=== PATIENT | female | born 1940 | race Caucasian/White ===

== ENCOUNTER → 2020-03-08 08:32 | Outpatient (BNVA) | payer MEDICARE, BC, SELFPAY | PROVIDERS: PCP Internal Medicine; Referring Provider Internal Medicine; Visit Provider Hospitalist | DX: J44.9 Chronic obstructive pulmonary disease, unspecified (principal); J98.4 Other disorders of lung; G47.33 Obstructive sleep apnea (adult) (pediatric); I35.0 Nonrheumatic aortic (valve) stenosis | CPT/HCPCS: 99212 ==

== ENCOUNTER 2020-09-06 07:59 | Outpatient (REF) | payer MEDICARE, BC, SELFPAY ==
[2020-09-06 10:28] LABS: Basophils Percent Auto 0.2 % (0-2); Eosinophils Absolute Auto 0.2 X10*3/uL (0.0-0.4); Eosinophils Percent Auto 1.4 % (0-4); Hemoglobin 12.8 g/dl (12.0-16.0); Imm Gran Pct Auto 0.6 % (0.0-0.4); Lymphocytes Absolute Auto 4.6 X10*3/uL (1.2-4.9); Lymphocytes Percent Auto 27.8 % (20-40); MANUAL DIFF FLAG SCAN; Mean Platelet Volume 11.2 fL (9.4-12.3); Monocytes Absolute Auto 1.3 X10*3/uL (0.1-1.2); Neutrophils Absolute Auto 10.2 X10*3/uL (2.0-8.3); Platelet Count 229 X10*3/uL (160-400); Red Cell Distribution Width 13.2 % (11.0-16.0); SCAN SMEAR FLAG 1; White Blood Count 16.4 X10*3/uL (4.8-10.8)
[2020-09-06 11:04] LABS: Alanine Aminotransferase 55 U/L (0-31); Albumin Level 4.2 g/dL (3.5-5.0); Alkaline Phosphatase 66 U/L (39-117); Anion Gap 13 (12-20); Aspartate Amino Transferase 31 U/L (5-31); Bilirubin Direct 0.3 mg/dL (0.0-0.5); Bilirubin Total 0.8 mg/dL (0.0-1.0); Blood Urea Nitrogen 24 mg/dL (9-16); Calcium 10.7 mg/dL (8.4-10.2); Carbon Dioxide 34 mmol/L (22-29); Chloride 96 mmol/L (96-108); Estimated Glomerular Filt Rate > 60; Glucose Random 113 mg/dL (60-115); Sodium 139 mmol/L (135-145); Total Protein 6.7 g/dL (6.5-8.0)
[2020-09-06 11:18] LABS: B Type Natriuretic Peptide 28 pg/mL (<100); Troponin-I High Sensitivity 96.6 ng/L (<3.5-17.0)
[2020-09-06 11:34] LABS: SLIDE REVIEW VERIFIED
[2020-09-06 11:41] LABS: Erythrocyte Sedimentation Rate 39 MM/HR (0-20)
[2020-09-07 08:23] LABS: SARS COV2 IgG Negative (Negative)
== END 2020-09-06 08:00 | disposition home or self-care (01) ==
LOC: HO.LAB 07:59
PROVIDERS: PCP Internal Medicine; Visit Provider Hospitalist
DX: Z20.822 Contact with and (suspected) exposure to COVID-19 (principal); J44.9 Chronic obstructive pulmonary disease, unspecified; R06.00 Dyspnea, unspecified; J98.4 Other disorders of lung
CPT/HCPCS: 36415; 80048; 80076; 83880; 84484; 85025; 85652; 86769; 99212

== ENCOUNTER → 2021-01-11 08:32 | Outpatient (BNVA) | payer MEDICARE, BC, SELFPAY | PROVIDERS: PCP Internal Medicine; Visit Provider Hospitalist | DX: J44.9 Chronic obstructive pulmonary disease, unspecified (principal); J98.4 Other disorders of lung; G47.33 Obstructive sleep apnea (adult) (pediatric); J31.0 Chronic rhinitis; I35.0 Nonrheumatic aortic (valve) stenosis | CPT/HCPCS: 99212 ==

== ENCOUNTER → 2021-09-21 09:28 | Outpatient (BNVA) | payer MEDICARE, BC, SELFPAY | PROVIDERS: PCP Internal Medicine; Visit Provider Hospitalist | DX: J98.4 Other disorders of lung (principal); G47.33 Obstructive sleep apnea (adult) (pediatric); J44.9 Chronic obstructive pulmonary disease, unspecified; J31.0 Chronic rhinitis; I35.0 Nonrheumatic aortic (valve) stenosis; Z79.899 Other long term (current) drug therapy; Z99.81 Dependence on supplemental oxygen | CPT/HCPCS: 94618; 99212 ==

== ENCOUNTER → 2022-03-14 14:55 | Outpatient (BNVA) | payer MEDICARE, BC, SELFPAY | PROVIDERS: PCP Internal Medicine; Visit Provider Hospitalist | DX: J98.4 Other disorders of lung (principal); J44.9 Chronic obstructive pulmonary disease, unspecified; J31.0 Chronic rhinitis; I35.0 Nonrheumatic aortic (valve) stenosis; G47.33 Obstructive sleep apnea (adult) (pediatric) | CPT/HCPCS: 99212 ==

== ENCOUNTER 2023-05-31 | Outpatient (REF) | payer MEDICARE, SELFPAY ==
[2023-06-01 07:27] LABS: Appearance Urine Clear; Color Urine Yellow; Glucose Urine UA Negative (Negative); Leukocyte Esterase Urine Negative (Negative); Nitrite Urine Negative (Negative); PH 7.5 (5.0-9.0); Specific Gravity - Urine <= 1.005 (1.005-1.025); UMIC TRIGGER UA YES; Urine Blood Trace (Negative); Urine Ketones Negative (Negative); Urine Protein Negative (Neg-Trace)
[2023-06-01 07:39] LABS: Bacteria Urine None Seen (None Seen); Hyaline Casts Urine 0-2 /LPF (0-2); RBC Urine 0-2 /HPF (0-2); Squamous Epithelial Cell Urine 0-2 /HPF (0-2); WBC Urine 0-5 /HPF (0-5)
== END 2023-05-31 00:01 | disposition home or self-care (01) ==
LOC: HO.MMNH2L
PROVIDERS: Visit Provider Family Medicine
DX: N39.0 Urinary tract infection, site not specified (principal)
CPT/HCPCS: 81001; 87086; 87088; 87186

== ENCOUNTER 2024-02-21 14:15 | Outpatient (AMB) | payer MEDICARE, BC, SELFPAY ==
[2024-02-21 14:34] VITALS: BP 132/70; PULSE 77; O2SAT 86; BMI 38.1
--- NOTE | 2024-02-21 14:34 | A.OFFVIS_ITS ---
Vital Signs 02/21/24 14:34 Height 5 ft Weight 195 lb BMI 38.1 BP 132/70 Blood Pressure Location Rt brachial Position Sitting Pulse 77 Pulse Source Pulse Oximeter Pulse Oximetry (%) 86 L Oxygen Delivery Method Room Air Intake Visit Reasons: Resp Failure Hand Cooper Helper Required: No Allergies No Known Allergies Allergy (Verified 02/21/24 14:36) HPI Comments Details: The patient is a 83-year-old woman with a known history of heart failure in addition to moderate to severe aortic stenosis. She also has a history of obstructive sleep apnea and has been using her BiPAP. The BiPAP therapy has been affecting beneficial. She does use it for more than 4 hours a night. However, she is having issues because the most of also have oxygen connected and she does not have the adapter for it. I will request the adaptive from [facility]. In the meantime she continues to have dyspnea on exertion. Moderate severity. If he has a history interstitial lung disease and respiratory disease. She has responded well to albuterol in the past. However, she had a hard time with the HFA device. She probably do a lot better with the Elipta device. 02/21/2024 the patient is here for a pulmonary follow-up visit. The patient overall has been doing well. She is status post pacemaker and also a aortic valve replacement. The patient tolerated that well. Her breathing did improve partially. Although she is just tired in general. She while in the hospital stopped using the BiPAP. She had been using oxygen. And because the BiPAP was bothering her she just been just using the oxygen. She seems to be tolerating that well. Will have her get a blood gas to make sure that she is not developing significant hypercarbia. If she is she need to go back on the BiPAP. The patient also has been taking her diuretics. Seems like her volume status is overall better. She also was hospitalized with severe hypercalcemia due to medication changes and parathyroid disease and seems to be doing better from that standpoint either. She is hoping to visit [facility]. This is a long trip for her their thinking about breaking up the trip into 2 to make it easier for her. She does have a portable oxygen concentrator that is [facility] approved but she will need an off battery to last her the whole trip. [facility] Medical History (Updated 02/21/24 @ 21:30 by Robin House MD) Pericardial effusion Chronic rhinitis Dyspnea Aortic stenosis Chronic restrictive lung disease MARVEL treated with BiPAP Asthma-COPD overlap syndrome Family History (Updated 03/08/20 @ 20:06 by Robin House MD) Father No problems noted. Social History (Updated 01/11/21 @ 08:46 by Sandra Martines Hilary) Patient Tobacco Use Status: Never used Tobacco Review of Systems Const Reports daytime sleepiness, Reports fatigue and Denies night sweats ENT Denies change in voice, Denies lip swelling, Denies mouth pain, Reports nasal congestion, Reports nasal discharge and Denies tongue swelling Card Denies chest pain and Reports dyspnea on exertion Resp Reports cough and Reports dyspnea on exertion GI Denies abdominal pain Denies hematuria, Reports urinary incontinence, Reports urinary hesitancy and Reports urinary urgency Musc Reports abnormal gait and Reports arthralgias Neuro Denies Neuro-related abnormal movements and Reports abnormal gait Psych Denies no additional complaints Endo Reports fatigue Armin/Lymph Denies easy bleeding and Denies lymphadenopathy Aller/Immun Denies lip swelling and Denies tongue swelling Physical Exam Vital Signs: Last Vital Signs Pulse 77 02/21/24 14:34 BP 132/70 02/21/24 14:34 Pulse Ox 86 L 02/21/24 14:34 Oxygen Delivery Method Room Air 02/21/24 14:34 BMI result Body Mass Index 38.1 Const General: alert Neck Neck: Yes normal visual inspection, Yes full ROM and Yes no lymphadenopathy Chest Chest palpation & inspection: normal inspection of the chest Resp Auscultation: diminished lung sounds Cardio Rate: regular rate Rhythm: regular rhythm Heart sounds: S1 normal heart sound present, S2 normal heart sound present and Murmur heart sound present systolic IV/ GI Palpation (GI): Soft to palpation and nontender Auscultation: normal bowel sounds General: Yes no CVA tenderness Back/Spine/Pelvis Back: no CVA tenderness Skin General skin exam: rashes and/or lesions noted Assessment & Plan Assessment & Plan (1) Chronic restrictive lung disease: Code(s): J98.4 - Other disorders of lung Category: Medical (2) Aortic stenosis: Comment: s/p TVAR Code(s): I35.0 - Nonrheumatic aortic (valve) stenosis Category: Medical Qualifiers: Cardiac valve disease etiology: nonrheumatic Qualified Code(s): I35.0 - Nonrheumatic aortic (valve) stenosis (3) MARVEL treated with BiPAP: Code(s): G47.33 - Obstructive sleep apnea (adult) (pediatric) Category: Medical (4) Asthma-COPD overlap syndrome: Code(s): J44.9 - Chronic obstructive pulmonary disease, unspecified Category: Medical (5) Chronic rhinitis: Code(s): J31.0 - Chronic rhinitis Category: Medical Plan holding BiPAP with 1 L oxygen at night Bloodwork and blood gas POC 2L/pulse 2L/min oxygen while sleeping Continue Incruse short-acting beta agonist as needed continue fluticasone nasal spray for her allergic rhinitis continue antihistamines Follow-up in 6 months Orders: Orders Complete Blood Count Auto Diff Today J44.9 - Chronic obstructive pulmonary disease, unspecified Venous Blood Gas Today J44.9 - Chronic obstructive pulmonary disease, unspecified Basic Metabolic Panel Today J44.9 - Chronic obstructive pulmonary disease, unspecified Liver Panel Today J44.9 - Chronic obstructive pulmonary disease, unspecified Coding Level of Care Code Est Pt Level 4 (25296) Complex EM visit Add On G2211 Diagnoses Chronic restrictive lung disease J98.4 Nonrheumatic aortic valve stenosis I35.0 Cardiac valve disease etiology: nonrheumatic MARVEL treated with BiPAP G47.33 Asthma-COPD overlap syndrome J44.9 Chronic rhinitis J31.0 Time Spent (min) 18
== END 2024-02-21 14:56 | disposition home or self-care (01) ==
PROVIDERS: PCP Internal Medicine; Visit Provider Hospitalist
DX: J98.4 Other disorders of lung (principal); I35.0 Nonrheumatic aortic (valve) stenosis; G47.33 Obstructive sleep apnea (adult) (pediatric); J44.9 Chronic obstructive pulmonary disease, unspecified; J31.0 Chronic rhinitis
CPT/HCPCS: 99214; G2211

== ENCOUNTER 2024-02-21 14:15 | Outpatient (REF) | payer MEDICARE, BC, SELFPAY ==
[2024-02-21 15:31] LABS: VBG pH 7.43 (7.32-7.43)
[2024-02-21 15:32] LABS: VBG Base Excess 11.4 mmol/L; VBG HCO3 37 mmol/L (22-26); VBG pCO2 55 mmHg; VBG pO2 60 mmHg; Venous Blood Gas Refer to POC result
[2024-02-21 15:55] LABS: Basophils Percent Auto 0.3 % (0-2); Eosinophils Absolute Auto 0.4 X10*3/uL (0.0-0.4); Hematocrit 36.7 % (37.0-47.0); Hemoglobin 12.1 g/dl (12.0-16.0); Imm Gran Abs Auto 0.04 X10*3/uL (0.00-0.03); Imm Gran Pct Auto 0.3 % (0.0-0.4); Lymphocytes Absolute Auto 5.5 X10*3/uL (1.2-4.9); Lymphocytes Percent Auto 45.4 % (20-40); MANUAL DIFF FLAG SCAN; Mean Corpuscular Hemoglobin 32.3 pg (27.0-33.0); Mean Corpuscular Volume 97.9 fL (80.0-98.0); Mean Platelet Volume 11.6 fL (9.4-12.3); Monocytes Absolute Auto 0.9 X10*3/uL (0.1-1.2); Monocytes Percent Auto 7.6 % (2-11); Neutrophils Absolute Auto 5.2 x10*3/uL (2.0-8.3); Neutrophils Percent Auto 43.4 % (45-73); Platelet Count 132 X10*3/uL (160-400); Red Blood Count 3.75 X10*6/uL (4.20-5.50); Red Cell Distribution Width 14.3 % (11.0-16.0); SCAN SMEAR FLAG 1; White Blood Count 12.1 X10*3/uL (4.8-10.8)
[2024-02-21 16:27] LABS: SLIDE REVIEW VERIFIED
[2024-02-21 16:36] LABS: Alanine Aminotransferase 39 U/L (0-31); Albumin Level 3.8 g/dL (3.5-5.0); Alkaline Phosphatase 60 U/L (39-117); Anion Gap 13 (12-20); Aspartate Amino Transferase 39 U/L (5-31); Bilirubin Direct 0.1 mg/dL (0.0-0.5); Bilirubin Total 0.3 mg/dL (0.0-1.0); Blood Urea Nitrogen 22 mg/dL (9-16); Calcium 9.5 mg/dL (8.4-10.2); Carbon Dioxide 32 mmol/L (22-29); Chloride 103 mmol/L (96-108); Estimated Glomerular Filt Rate > 60; Glucose Random 96 mg/dL (60-115); Potassium 3.7 mmol/L (3.3-5.1); Sodium 144 mmol/L (135-145); Total Protein 6.8 g/dL (6.5-8.0)
== END 2024-02-21 14:16 | disposition home or self-care (01) ==
LOC: HO.LAB 14:15
PROVIDERS: PCP Internal Medicine; Visit Provider Hospitalist
DX: J44.9 Chronic obstructive pulmonary disease, unspecified (principal); J98.4 Other disorders of lung; I35.0 Nonrheumatic aortic (valve) stenosis; J31.0 Chronic rhinitis; G47.33 Obstructive sleep apnea (adult) (pediatric); Z99.89 Dependence on other enabling machines and devices; Z99.81 Dependence on supplemental oxygen
CPT/HCPCS: 36415; 80048; 80076; 82803; 85025; 99212

== ENCOUNTER 2024-08-26 15:46 | Outpatient (AMB) | payer MEDICARE, BC, SELFPAY ==
[2024-08-26 15:47] VITALS: BP 120/64; PULSE 68; O2SAT 95
--- NOTE | 2024-08-26 15:47 | MHC.OFFVIS ---
Vital Signs 08/26/24 15:47 Height 5 ft BMI Reason not done Patient refused/unable BP 120/64 Blood Pressure Location Lt brachial Position Sitting Pulse 68 Pulse Source Pulse Oximeter Pulse Oximetry (%) 95 Oxygen Delivery Method Nasal Cannula Oxygen Flow Rate 3 Intake Visit Reasons: Resp Failure Allergies No Known Allergies Allergy (Verified 08/26/24 15:51) HPI Comments Details: The patient is a 84-year-old woman with a known history of heart failure in addition to moderate to severe aortic stenosis. She also has a history of obstructive sleep apnea and has been using her BiPAP. The BiPAP therapy has been affecting beneficial. She does use it for more than 4 hours a night. However, she is having issues because the most of also have oxygen connected and she does not have the adapter for it. I will request the adaptive from [facility]. In the meantime she continues to have dyspnea on exertion. Moderate severity. If he has a history interstitial lung disease and respiratory disease. She has responded well to albuterol in the past. However, she had a hard time with the HFA device. She probably do a lot better with the Elipta device. 02/21/2024 the patient is here for a pulmonary follow-up visit. The patient overall has been doing well. She is status post pacemaker and also a aortic valve replacement. The patient tolerated that well. Her breathing did improve partially. Although she is just tired in general. She while in the hospital stopped using the BiPAP. She had been using oxygen. And because the BiPAP was bothering her she just been just using the oxygen. She seems to be tolerating that well. Will have her get a blood gas to make sure that she is not developing significant hypercarbia. If she is she need to go back on the BiPAP. The patient also has been taking her diuretics. Seems like her volume status is overall better. She also was hospitalized with severe hypercalcemia due to medication changes and parathyroid disease and seems to be doing better from that standpoint either. She is hoping to visit [facility]. This is a long trip for her their thinking about breaking up the trip into 2 to make it easier for her. She does have a portable oxygen concentrator that is [facility] approved but she will need an off battery to last her the whole trip. 08/26/2024 the patient is here for a pulmonary follow-up visit. Overall the patient is doing fair. She was recently hospitalized at [facility] with bilateral pneumonia congestive heart failure. She was given oxygen. She was found to have acute on chronic hypercarbic respiratory failure requiring BiPAP. But, still her CO2 still elevated. The patient is currently at rehabilitation. She does continue to use oxygen 2-3 L continuous. And she seems to be tolerating that well. In addition to that she has been noted some lower extremity edema and she does have William bandages wrapped. She is currently on diuretic therapy. The patient does have underlying asthma COPD overlap syndrome. With the chronic hypercarbic respiratory failure she does have a poor prognosis and high risk for rehospitalization. I do believe that this point the noninvasive ventilator will provide her with better gas exchange improved prognosis and decrease hospitalizations. Therefore, I will talk to her current [employer] company to have her be set up with a astral noninvasive ventilator to help her with the gas exchange and her respiratory failure. Will continue with cardioprotective medications and the patient follow-up in 2-3 months. If she has any issues prior to this she will call for an earlier assessment. [facility] Medical History (Updated 08/26/24 @ 23:57 by Robin House MD) Pneumonia Pericardial effusion Chronic rhinitis Dyspnea Aortic stenosis Chronic restrictive lung disease MARVEL treated with BiPAP Asthma-COPD overlap syndrome Family History (Updated 03/08/20 @ 20:06 by Robin House MD) Father No problems noted. Social History Patient Tobacco Use Status: Never used Tobacco Review of Systems Const Denies chills, Reports fatigue, Denies fever(s) and Denies weight loss ENT Denies dizziness, Denies lip swelling and Denies tongue swelling Card Denies chest pain, Denies leg edema, Denies lightheadedness, Denies palpitations, Reports dyspnea on exertion, Denies orthopnea and Denies other Resp Reports cough and Reports dyspnea on exertion GI Denies hematochezia and Denies change in stool character Denies hematuria, Reports urinary incontinence, Reports urinary hesitancy and Reports urinary urgency Musc Reports abnormal gait, Reports myalgias, Reports atrophy, Reports muscle weakness and Denies tingling Neuro Reports abnormal gait, Denies dizziness and Denies tingling Psych Denies no additional complaints Endo Reports fatigue and Denies palpitations Armin/Lymph Denies easy bleeding and Denies lymphadenopathy Aller/Immun Denies lip swelling and Denies tongue swelling Physical Exam Vital Signs: Last Vital Signs Pulse 68 08/26/24 15:47 BP 120/64 08/26/24 15:47 Pulse Ox 95 08/26/24 15:47 Oxygen Delivery Method Nasal Cannula 08/26/24 15:47 Oxygen Flow Rate 3 08/26/24 15:47 Const General: alert Neck Neck: Yes normal visual inspection, Yes full ROM and Yes no lymphadenopathy Chest Chest palpation & inspection: normal inspection of the chest Resp Auscultation: crackles on the right in the lower lung mckenzie and diminished lung sounds Cardio Rate: regular rate Rhythm: regular rhythm Heart sounds: S1 normal heart sound present, S2 normal heart sound present and Murmur heart sound present systolic IV/ GI Palpation (GI): Soft to palpation and nontender Auscultation: normal bowel sounds General: Yes no CVA tenderness Back/Spine/Pelvis Back: no CVA tenderness Skin General skin exam: rashes and/or lesions noted Assessment & Plan Assessment & Plan (1) Chronic restrictive lung disease: Code(s): J98.4 - Other disorders of lung Category: Medical (2) Aortic stenosis: Comment: s/p TVAR Code(s): I35.0 - Nonrheumatic aortic (valve) stenosis Category: Medical Qualifiers: Cardiac valve disease etiology: nonrheumatic Qualified Code(s): I35.0 - Nonrheumatic aortic (valve) stenosis (3) Asthma-COPD overlap syndrome: Code(s): J44.9 - Chronic obstructive pulmonary disease, unspecified Category: Medical (4) Chronic rhinitis: Code(s): J31.0 - Chronic rhinitis Category: Medical (5) Pneumonia: Code(s): J18.9 - Pneumonia, unspecified organism Category: Medical Qualifiers: Pneumonia type: aspiration pneumonia Laterality: unspecified laterality Lung location: unspecified part of lung Aspiration pneumonia type: unspecified Qualified Code(s): J69.0 - Pneumonitis due to inhalation of food and vomit Plan start NIV 2L oxygen. The patient carries a poor prognosis due to her hypercapnea. High risk for re-hospitalization. Would benefit from Astral Bloodwork and blood gas next visit Continue Incruse short-acting beta agonist as needed continue fluticasone nasal spray for her allergic rhinitis continue antihistamines start Doxycycline Follow-up in 2-3 months Medications: New doxycycline monohydrate 100 mg PO BID 28 tabs 0RF 14 days Coding Level of Care Code Est Pt Level 4 (66570) Complex EM visit Add On G2211 Diagnoses Chronic restrictive lung disease J98.4 Nonrheumatic aortic valve stenosis I35.0 Cardiac valve disease etiology: nonrheumatic Asthma-COPD overlap syndrome J44.9 Chronic rhinitis J31.0 Aspiration pneumonia, unspecified aspiration pneumonia type, unspecified laterality, unspecified part of lung J69.0 Pneumonia type: aspiration pneumonia Laterality: unspecified laterality Lung location: unspecified part of lung Aspiration pneumonia type: unspecified Time Spent (min) 18
== END 2024-08-26 16:24 | disposition home or self-care (01) ==
LOC: HO.HPS 15:47
PROVIDERS: PCP Internal Medicine; Visit Provider Hospitalist
DX: J98.4 Other disorders of lung (principal); I35.0 Nonrheumatic aortic (valve) stenosis; J44.9 Chronic obstructive pulmonary disease, unspecified; J31.0 Chronic rhinitis; J69.0 Pneumonitis due to inhalation of food and vomit
CPT/HCPCS: 99214; G2211

== ENCOUNTER → 2024-08-26 15:46 | Outpatient (BNVA) | payer MEDICARE, BC, SELFPAY | PROVIDERS: PCP Internal Medicine; Visit Provider Hospitalist | DX: J44.89 Other specified chronic obstructive pulmonary disease (principal); J69.0 Pneumonitis due to inhalation of food and vomit; I35.0 Nonrheumatic aortic (valve) stenosis; J31.0 Chronic rhinitis; J98.4 Other disorders of lung; G47.33 Obstructive sleep apnea (adult) (pediatric); Z99.89 Dependence on other enabling machines and devices; Z99.81 Dependence on supplemental oxygen | CPT/HCPCS: 99212 ==

== ENCOUNTER 2024-10-28 15:40 | Outpatient (AMB) | payer MEDICARE, BC, SELFPAY ==
[2024-10-28 15:43] VITALS: BP 122/58; PULSE 71; O2SAT 90; BMI 40.3
--- NOTE | 2024-10-28 15:43 | A.OFFVIS_ITS ---
Vital Signs 10/28/24 15:43 Height 5 ft Weight 206 lb 2.115 oz BMI 40.3 BP 122/58 L Blood Pressure Location Lt brachial Position Sitting Pulse 71 Pulse Source Pulse Oximeter Pulse Oximetry (%) 90 L Oxygen Delivery Method Nasal Cannula Oxygen Flow Rate 2 Intake Visit Reasons: Resp Failure Allergies No Known Allergies Allergy (Verified 10/28/24 15:52) HPI Comments Details: The patient is a 84-year-old woman with a known history of heart failure in addition to moderate to severe aortic stenosis. She also has a history of obstructive sleep apnea and has been using her BiPAP. The BiPAP therapy has been affecting beneficial. She does use it for more than 4 hours a night. However, she is having issues because the most of also have oxygen connected and she does not have the adapter for it. I will request the adaptive from [facility]. In the meantime she continues to have dyspnea on exertion. Moderate severity. If he has a history interstitial lung disease and respiratory disease. She has responded well to albuterol in the past. However, she had a hard time with the HFA device. She probably do a lot better with the Elipta device. 02/21/2024 the patient is here for a pulmonary follow-up visit. The patient overall has been doing well. She is status post pacemaker and also a aortic v alve replacement. The patient tolerated that well. Her breathing did improve partially. Although she is just tired in general. She while in the hospital stopped using the BiPAP. She had been using oxygen. And because the BiPAP was bothering her she just been just using the oxygen. She seems to be tolerating that well. Will have her get a blood gas to make sure that she is not developing significant hypercarbia. If she is she need to go back on the BiPAP. The patient also has been taking her diuretics. Seems like her volume status is overall better. She also was hospitalized with severe hypercalcemia due to medication changes and parathyroid disease and seems to be doing better from that standpoint either. She is hoping to visit [facility]. This is a long trip for her their thinking about breaking up the trip into 2 to make it easier for her. She does have a portable oxygen concentrator that is [facility] approved but she will need an off battery to last her the whole trip. 08/26/2024 the patient is here for a pulmonary follow-up visit. Overall the patient is doing fair. She was recently hospitalized at [facility] with bilateral pneumonia congestive heart failure. She was given oxygen. She was found to have acute on chronic hypercarbic respiratory failure requiring BiPAP. But, still her CO2 still elevated. The patient is currently at rehabilitation. She does continue to use oxygen 2-3 L continuous. And she seems to be tolerating that well. In addition to that she has been noted some lower extremity edema and she does have William bandages wrapped. She is currently on diuretic therapy. The patient does have underlying asthma COPD overlap syndrome. With the chronic hypercarbic respiratory failure she does have a poor prognosis and high risk for rehospitalization. I do believe that this point the noninvasive ventilator will provide her with better gas exchange improved prognosis and decrease hospitalizations. Therefore, I will talk to her current [employer] company to have her be set up with a astral noninvasive ventilator to help her with the gas exchange and her respiratory failure. Will continue with cardioprotective medications and the patient follow-up in 2-3 months. If she has any issues prior to this she will call for an earlier assessment. 10/28/2024 the patient is here for pulmonary follow-up visit. Overall the patient has been doing well. She did finally get used to the noninvasive ventilator and she is using it every night. She finds that is helping her work of breathing, headaches and overall energy levels. She continues he also use the oxygen as tolerated. She has been noticing increasing lower extremity edema with some redness likely cellulitis again. During the last visit she did receive doxycycline and she did tolerated well. I will give her another course. She should follow closely with the primary care doctor and also will help to elevate the legs further to try to help decrease some of the fluid buildup. She understands the fluid buildup will result in recurrent infections due to the stasis dermatitis and opening up the skin. Overall she is doing okay will will not do any blood work today as planned because she really has not been using the noninvasive ventilator enough. But will plan to follow-up with the blood gas the next time she comes in to see her progress with the noninvasive ventilator. In the meantime she will continue with current respiratory medicines as prescribed. The patient will return in 4-6 months if she has any issues prior to that she will call for an earlier assessment. [facility] Medical History (Updated 10/28/24 @ 21:50 by Robin House MD) Pneumonia Pericardial effusion Chronic rhinitis Dyspnea Aortic stenosis Chronic restrictive lung disease MARVEL treated with BiPAP Asthma-COPD overlap syndrome Family History (Updated 03/08/20 @ 20:06 by Robin House MD) Father No problems noted. Social History Patient Tobacco Use Status: Never used Tobacco Review of Systems Const Denies chills, Reports fatigue, Denies fever(s) and Denies weight loss ENT Denies dizziness, Denies lip swelling and Denies tongue swelling Card Denies chest pain, Denies leg edema, Denies lightheadedness, Denies palpitations, Reports dyspnea on exertion, Denies orthopnea and Denies other Resp Reports cough and Reports dyspnea on exertion GI Denies hematochezia and Denies change in stool character Denies hematuria, Reports urinary incontinence, Reports urinary hesitancy and Reports urinary urgency Musc Reports abnormal gait, Reports myalgias, Reports atrophy, Reports muscle weakness and Denies tingling Neuro Reports abnormal gait, Denies dizziness and Denies tingling Psych Denies no additional complaints Endo Reports fatigue and Denies palpitations Armin/Lymph Denies easy bleeding and Denies lymphadenopathy Aller/Immun Denies lip swelling and Denies tongue swelling Physical Exam Vital Signs: Last Vital Signs Pulse 71 10/28/24 15:43 BP 122/58 L 10/28/24 15:43 Pulse Ox 90 L 10/28/24 15:43 Oxygen Delivery Method Nasal Cannula 10/28/24 15:43 Oxygen Flow Rate 2 10/28/24 15:43 BMI result Body Mass Index 40.3 Const General: alert Neck Neck: Yes normal visual inspection, Yes full ROM and Yes no lymphadenopathy Chest Chest palpation & inspection: normal inspection of the chest Resp Auscultation: crackles on the right in the lower lung mckenzie and diminished lung sounds Cardio Rate: regular rate Rhythm: regular rhythm Heart sounds: S1 normal heart sound present, S2 normal heart sound present and Murmur heart sound present systolic IV/ GI Palpation (GI): Soft to palpation and nontender Auscultation: normal bowel sounds General: Yes no CVA tenderness Back/Spine/Pelvis Back: no CVA tenderness Skin General skin exam: erythema (RLE) Assessment & Plan Assessment & Plan (1) Chronic restrictive lung disease: Code(s): J98.4 - Other disorders of lung Category: Medical (2) Aortic stenosis: Comment: s/p TVAR Code(s): I35.0 - Nonrheumatic aortic (valve) stenosis Category: Medical Qualifiers: Cardiac valve disease etiology: nonrheumatic Qualified Code(s): I35.0 - Nonrheumatic aortic (valve) stenosis (3) Asthma-COPD overlap syndrome: Code(s): J44.9 - Chronic obstructive pulmonary disease, unspecified Category: Medical (4) Chronic rhinitis: Code(s): J31.0 - Chronic rhinitis Category: Medical (5) Cellulitis: Code(s): L03.90 - Cellulitis, unspecified Category: Medical Qualifiers: Site of cellulitis: extremity Site of cellulitis of extremity: lower extremity Laterality: right Qualified Code(s): L03.115 - Cellulitis of right lower limb Plan continue NIV 2L oxygen. Bloodwork and blood gas next visit Continue Incruse short-acting beta agonist as needed continue fluticasone nasal spray for her allergic rhinitis continue antihistamines start Doxycycline Follow-up in 4-6 months Medications: New doxycycline monohydrate 100 mg PO BID 28 tabs 0RF 14 days Coding Level of Care Code Est Pt Level 4 (63712) Complex EM visit Add On G2211 Diagnoses Chronic restrictive lung disease J98.4 Nonrheumatic aortic valve stenosis I35.0 Cardiac valve disease etiology: nonrheumatic Asthma-COPD overlap syndrome J44.9 Chronic rhinitis J31.0 Cellulitis of right lower extremity L03.115 Site of cellulitis: extremity Site of cellulitis of extremity: lower extremity Laterality: right Time Spent (min) 17
--- OUTSIDE RECORDS SUMMARY | 2024-10-28 16:18 | XMS_ITS | Patient Health Record ---
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 Primary Care Provider Sneha Balbuena Unavailable [phone] Reason For Referral No Information Medications Medication SIG (Take, Route, Frequency, Duration) Notes Start Date End Date Status Digoxin 125 MCG 1 tablet Orally Once a day Active Vitamin D3 1000 IU 1 ORAL daily; Duration: -3 [facility] 01/19/2014 Active Omeprazole 20MG 1 ORAL TWICE DAILY [facility] 12/07/2011 Active Sensipar 30 MG 1 tablet after a meal with food Orally Once a day Active predniSONE 5 MG/ML 1 ml Orally Twice a day Active Lasix 40 MG 1 Orally daily [facility] 01/19/2014 Active Iron Supplement 1 ORAL daily; Duration: -3 [facility] 01/19/2014 Active Meclizine HCl 12.5MG 1 ORAL NEEDED; Duration: -2 [facility] 01/19/2014 Not-Taking Lisinopril 2.5 MG 1 Orally daily [facility] 12/07/2011 Active Aspirin EC 81MG 1 ORAL daily; Duration: -3 [facility] 12/07/2011 Active Social History Tobacco Use: Social History Observation Description Date Details (start date - stop date) Never Smoker NA - NA Tobacco Use/Smoking Question Answer Notes Are you a nonsmoker Section Notes: Marital status: Children: 2 Children Occupation: retired Nutrition: average diet Exercise: none Sexual activity: not sexually active Contraception: hysterectomy .CE: Smoking: Never a smoker Tobacco exposure: No smokers in home. .CE: Alcohol: none Text messaging while driving: no Sunscreen: yes Illicit drugs: no Seatbelt: yes Problems Problem Type SNOMED Code ICD Code Onset Dates Problem Status W/U Status Risk Notes Problem Postmenopausal atrophic vaginitis (38646947) Postmenopausal atrophic vaginitis (N95.2) Active confirmed Problem Cystocele (820879628) Cystocele, unspecified (N81.10) Active confirmed Problem Obesity (086896790) Obesity, unspecified (278.00) Active confirmed Diag Problem Benign essential hypertension (9994730) Essential hypertension, benign (401.1) Active confirmed Major Problem Esophageal reflux (685651930) Esophageal reflux (530.81) Active confirmed Major Problem Calculus of kidney (02606756) Calculus of kidney (592.0) Active confirmed Major Problem Menopausal symptom (19407246) Symptomatic menopausal or female climacteric states (627.2) Active confirmed Major Problem 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) (870227015) Disorder of bone and cartilage, unspecified (733.90) Active confirmed Diag Problem Sleep apnea (56974788) Unspecified sleep apnea (780.57) Active confirmed Diag Problem Abdominal pain (finding) (04443750) Abdominal pain, unspecified site (789.00) Active confirmed Diag Problem Gynecological examination normal (893179690330310) Routine gynecological examination (V72.31) Active confirmed Major Problem Screening for malignant neoplasm of colon (805484984) Special screening for malignant neoplasms, colon (V76.51) Active confirmed Major Plan Of Treatment Pending Test Test Name Order Date MAMMOGRAM, SCREENING 05/11/2016 MM Digital Mammo Screening 05/11/2016 Insurance Providers Payer Name Payer Address Payer Phone Subscriber Number Group Number Insured Name Patient Relationship to Insured Coverage Start Date Coverage End Date MEDICARE [address] JANIE WOLFF [id number] PEDRO VASQUEZ Self - patient is the insured BC[employer] OF [facility] [address] [place] [address] [id number] PEDRO VASQUEZ Self - patient is the insured Medical (General) History Medical History History ICD Code Unspecified abdominal pain R10.9 Obesity, unspecified E66.9 Disorder of bone density and structure, unspecified M85.9 Sleep apnea, unspecified G47.30 Gastro-esophageal reflux disease without esophagitis K21.9 Essential (primary) hypertension I10 Calculus of kidney N20.0 Menopausal and female climacteric states N95.1 Surgical History Surgery Date(Month/Year) Tonsillectomy Hysterectomy Cholecystectomy Colonoscopy Hospitalization History Reason Date(Month/Year) 5 days Cardiac Unit @ [facility] 03/2016 child
--- OUTSIDE RECORDS SUMMARY | 2024-10-28 16:18 | XMS_ITS ---
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 Role Phone Carie Sandoval Unavailable Unavailable Volodymyr Gupta Unavailable Unavailable Naina Goss Unavailable Unavailable Kady Ochoa Unavailable Unavailable Allergies and adverse reactions No Known Allergies Care Team Name Role Address Phone Organization Dates Volodymyr Gupta PCP [address], [address], [facility] (Office): : [facility] 05/22/2023 - 06/14/2023 Carie Sandoval [address], [address], [facility] 05/22/2023 - 06/14/2023 Naina Goss [address], [place], [address], [facility] (Office): : [facility] 05/22/2023 - 06/14/2023 Kady Ochoa [address], [address], [place] (Office): [facility] 05/22/2023 - 06/14/2023 Goals Section Goals Description Status Target Date I will be able to communicat e adequately with my care team and to have my needs met through review date. Active 08/18/2023 I will be clean, well groome d and appropriately dressed daily with staff assistance through the review date. Active 08/18/2023 I will be free from discomfo rt or adverse side effects of antibiotic therapy through the review date. Active 08/18/2023 I will be free from discomfo rt or adverse side effects related to anti-depressant therapy through the review date. Active 08/17 I will be free from s/sx of dehydration through next review date. Active 08/18/2023 I will decrease the frequenc y of urinary incontinent episodes by the review date. Active 08/18/2023 I will exhibit increased com pliance with ordered diet and dietary interventions by next review date. Active 08/18/2023 I will have improved mood state through the revi ew date. Active 08/18/2023 I will have no complications of altered respiratory status through the review date. Active 08/18/2023 I will improve current level of function in Bed Mobility, Transfers, Eating, Dressing, Toilet Use and Personal Hygiene, ADL Score) by the review date. Active 08/18/2023 I will maintain current leve l of cognitive function through the review date. Active 08/18/2023 I will not have skin breakdo wn due to incontinence through the review date. Active 08/18/2023 I will participate in simple decision making daily through the review date. Active 08/18/2023 I will show decreased episod es of s/sx of depression through the review date. Active 08/18/2023 My risk for serious injury f rom falls will be mitigated with proper interventions through review date. Active 08/18/2023 The resident will have intac t skin, free of redness, blisters, or discoloration through review date. Active 08/18/2023 Immunizations Immunization Status Vaccine Details Vaccine Code CodeSystem Vince e Notes Influenza completed Influenza, split virus, trivalent, injectable, contains preservative 141 CVX created date: 09/19/2022 administered date: 06/28/2022 Shingrix 2nd Step completed zoster vaccine recombinant 187 CVX created date: 09/19/2022 administered date: 04/18/2018 Shingrix 1st Step completed zoster vaccine recombinant 187 CVX created date: 09/19/2022 administered date: 01/12/2018 SARS-COV-2 (COVID-19) completed SARS-COV-2 (COVID-19) vaccine, mRNA, spike protein, LNP, preservative free, 100 mcg/0.5mL dose or 50 mcg/0.25mL dose Step 2 of Multi-step with next step required 207 CVX created date: 09/19/2022 consent date: 09/19/2022 administered date: 11/02/2020 SARS-COV-2 (COVID-19) completed SARS-COV-2 (COVID-19) vaccine, mRNA, spike protein, LNP, preservative free, 100 mcg/0.5mL dose or 50 mcg/0.25mL dose Mfg: MODERNA Step 1 of Multi-step with next step required 207 CVX created date: 09/19/2022 administered date: 10/05/2020 Moderna Covid-19 Booster (SARS-COV-2) vaccine completed SARS-COV-2 (COVID-19) vaccine, mRNA, spike protein, LNP, preservative free, 100 mcg/0.5mL dose or 50 mcg/0.25mL dose 207 CVX created date: 09/19/2022 administered date: 05/08/2021 (COVID-19) 8314-2224 Updated Pfizer Vaccine cancelled SARS-COV-2 (COVID-19) vaccine, mRNA, spike protein, LNP, preservative free, juan-sucrose, 30 mcg/0.3 mL dose 309 CVX created date: 06/14/2023 consent date: 06/14/2023 Mental Status Section Date Assessment Total Score Description 06/14/2023 CAM 0 No delirium ind icated 05/25/2023 BIMS 11 moderate cognit stephanie impairment CAM 0 No delirium ind icated PHQ-9 10 moderate depres guerrero Problems Problem # Description Date of onset Resolved Date Code CodeSystem Concern Status 1 ACIDOSIS, UNSPECIFIED 05/21/[address] active 2 BODY MASS INDEX [BMI]40.0-44.9, ADULT 05/21/2023 05/21/[address] completed 3 CELLULITIS, UNSPECIFIED 05/21/[address] active 4 HYPERCALCEMIA 05/21/[address] acti ve 5 NON-ST ELEVATION (NSTEMI) MYOCARDIAL INFARCTION 05/21/[address] active 6 MORBID (SEVERE) OBESITY DUE TO EXCESS CALORIES 09/19/[address] active 7 CHRONIC OBSTRUCTIVE PULMONARY DISEASE, UNSPECIFIED 09/18/[address] active 8 ACUTE RESPIRATORY FAILURE WITH HYPERCAPNIA 09/17/[address] active 9 CHRONIC SYSTOLIC (CONGESTIVE) HEART FAILURE 09/17/[address] active 10 HYPERLIPIDEMIA, UNSPECIFIED 09/17/[address] active 11 INTERSTITIAL PULMONARY DISEASE, UNSPECIFIED 09/17/[address] active 12 MAJOR DEPRESSIVE DISORDER, RECURRENT, UNSPECIFIED 09/17/[address] active 13 MUSCLE WASTING AND ATROPHY, NOT ELSEWHERE CLASSIFIED, MULTIPLE SITES 09/17/[address] active 14 NONRHEUMATIC AORTIC (VALVE) STENOSIS 09/17/[address] active 15 OBSTRUCTIVE SLEEP APNEA (ADULT) (PEDIATRIC) 09/17/[address] active 16 PERSONAL HISTORY OF MALIGNANT NEOPLASM OF BREAST 09/17/[address] active 17 PREDIABETES 09/17/[address] activ e 18 UNSPECIFIED PROTEIN-CALORIE MALNUTRITION 09/17/[address] active Reason for Referral No Reasons for Referral Entered Social History Social History Observation Description Start Date End Date Code Code System Current Smoking Status Tobacco smoking consumption unknown 579858996 SNOMED CT Sex Assigned At Female 1940 13283-5 [facility] Gender Identity Vital Signs Code Code System Vitals Name Values and Units Timing Information 14068-0 LOINC Pain Level Value=0.0 06/14/2023 9279-1 LOINC Respiratory Rate Value=18.0 Units=/m in 06/14/2023 8462-4 LOINC Blood Pressure-Diastolic Value=80 Un its=mmHg 06/14/2023 8480-6 LOINC Blood Pressure-Systolic Dijjx=110 Un its=mmHg 06/14/2023 8310-5 [facility] Body Temperature Value=98.0 Units= F 06/14/2023 8867-4 [facility] Heart rate Value=86.0 Units=/min 37401-0 [facility] O2 % BldC Oximetry Value=90.0 Units= % 06/14/2023 43763-1 [facility] Weight Mhxsl=621.8 Units=Lbs 2339-0 [facility] Blood Sugar Lvpta=620.0 Units=mg/dL 05/22/2023 8302-2 [facility] Height Value=61.0 Units=Inches 09/17/2022
--- OUTSIDE RECORDS SUMMARY | 2024-10-28 16:18 | XMS_ITS | Encounter Summary ---
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 Name Role Phone Jewell Monaco MD Primary Care Provider Encounter Details Date Type Department Care Team (Late st Contact Info) Description 08/30/2024 Lab Requisition [facility] - Main Lab [address] [facility] [place] [address] Roberta Arreola MD [address] [address] Essential (primary) hypertension; Other abnormal glucose; Vitamin D deficiency, unspecified; Respiratory failure, unspecified with hypoxia (CMS/HCC V24, CMS/HCC V28); Sepsis, unspecified organism (CMS/HCC V24, CMS/HCC V28) Social History Tobacco Use Types Packs/Day Years Used Date Smoking Tobacco: Never Smokeless Tobacco: Never Alcohol Use Standard Drinks/Week Comments Never 0 (1 standard drink = 0.6 oz pur e alcohol) Comments Unknown Sex and Gender Information Value Date Recorded Sex Assigned at Not on file Legal Sex Female 9:01 PM EST Gender Identity Not on file Sexual Orientation Not on file documented as of this encounter Plan of Treatment Upcoming Encounters Date Type Department Care Team (Late st Contact Info) Description 01/26/2025 11:30 AM EDT Ancillary Procedure [facility] - [address] [facility] [address] [place] [address] 02/11/2025 11:10 AM EDT Office Visit [facility] [address] [place] [address] Gris Perez NP [address] [place] [address] [place] [address] documented as of this encounter Procedures Procedure Name Priority Date/Time Associated Diagnosis Comments COMPLETE BLOOD COUNT Routine 09/01/2024 10:19 AM EDT Essential (primary) hypertension Other abnormal glucose Vitamin D deficiency, unspecified Respiratory failure, unspecified with hypoxia (CMS/HCC V24, CMS/HCC V28) Sepsis, unspecified organism (CMS/HCC V24, CMS/HCC V28) BASIC METABOLIC PANEL Routine 09/01/2024 10:19 AM EDT Essential (primary) hypertension Other abnormal glucose Vitamin D deficiency, unspecified Respiratory failure, unspecified with hypoxia (CMS/HCC V24, CMS/HCC V28) Sepsis, unspecified organism (CMS/HCC V24, CMS/HCC V28) documented in this encounter Results * (ABNORMAL) Basic metabolic panel (09/01/2024 10:19 AM EDT) Sodium 137 133 - 145 mmol/L LAB CHEMISTRY METHOD 09/01/2024 1:08 PM [facility] Potassium 3.5 3.5 - 5.5 mmol/L LAB CHEMISTRY METHOD 09/01/2024 1:08 PM [facility] Chloride 94(L) 96 - 110 mmol/L LAB CHEMISTRY METHOD 09/01/2024 1:08 PM [facility] CO2 39(H) 21 - 32 mmol/L LAB CHEMISTRY METHOD 09/01/2024 1:08 PM [facility] Anion Gap 4 3 - 11 LAB CHEMISTRY METHOD 09/01/2024 1:08 PM [facility] Glucose 121(H) 70 - 100 mg/dL LAB CHEMISTRY METHOD 09/01/2024 1:08 PM EDT [facility] BUN 29(H) 5 - 25 mg/dL LAB CHEMISTRY METHOD 09/01/2024 1:08 PM EDT [facility] Creatinine 0.97 0.50 - 1.10 mg/dL LAB CHEMISTRY METHOD 09/01/2024 1:08 PM [facility] eGFR 58(L) >=60 mL/min/1. 73m2 LAB CHEMISTRY METHOD 09/01/2024 1:08 PM [facility] Comment:Calculation based on the Chronic Kidney Disease Epidemiology Collaboration (CKD-EPI) equation refit without adjustment for race. BUN/Creatinine Ratio 29.9 LAB CHEMISTRY METHOD 09/01/2024 1:08 PM [facility] Calcium 10.2 8.5 - 10.5 mg/dL LAB CHEMISTRY METHOD 09/01/2024 1:08 PM [facility] Blood Venous blood specimen / Unknown Venipuncture / Unknown 09/01/2024 10:19 AM EDT 09/01/2024 11:21 AM EDT Roberta Arreola MD LAB BLOOD ORDERABLES Fin al Result [facility] [address] [place] [address], * (ABNORMAL) Complete blood count (09/01/2024 10:19 AM EDT) WBC 10.1 4.8 - 10.8 K/mcL LAB HEMETOLOGY METHOD 09/01/2024 12:46 PM EDT [facility] RBC 3.10(L) 3.80 - 4.80 M/mcL LAB HEMETOLOGY METHOD 09/01/2024 12:46 PM [facility] Hemoglobin 9.9(L) 11.5 - 16.0 g/dL LAB HEMETOLOGY METHOD 09/01/2024 12:46 PM EDT [facility] Hematocrit 31.8(L) 35.0 - 47.0 % LAB HEMETOLOGY METHOD 09/01/2024 12:46 PM EDT [facility] MCV 103.2(H) 79.0 - 98.0 FL LAB [facility]OLOGY [facility] MCH 32.1(H) 27.0 - 32.0 pcg LAB HEMETOLOGY METHOD 09/01/2024 12:46 PM EDT [facility] MCHC 31.1(L) 32.0 - 37.0 g/dL LAB HEMETOLOGY METHOD [facility]24 [facility] RDW 14.2 11.0 - 15.0 % LAB HEMETOLOGY METHOD 09/01/2024 12:46 PM [facility] Platelets 154 130 - 400 K/mcL LAB HEMETOLOGY METHOD [facility]/01[facility]2024 [facility] MPV 11.3(H) 7.0 - 11.0 FL LAB HEMETOLOGY METHOD 09/01/2024 12:46 PM [facility] NRBC 0.0 <1.0 % LAB HEMETOLOGY METHOD 09/01/2024 12:46 PM [facility] NRBC Absolute 0.00 <0.10 K/mcL LAB HEMETOLOGY METHOD 09/01/2024 12:46 PM [facility] Blood Venous blood specimen / Unknown Venipuncture / Unknown 09/01/2024 10:19 AM EDT 09/01/2024 11:21 AM EDT us Roberta Arreola MD LAB BLOOD ORDERABLES Fin al Result [facility] [address] [place] [address], documented in this encounter Visit Diagnoses Diagnosis Essential (primary) hypertension Unspecified essential hypertension Other abnormal glucose Vitamin D deficiency, unspecified Respiratory failure, unspecified with hypoxia ([facility] V24, [facility] V28) Sepsis, unspecified organism ([facility] V24, [facility] V28) documented in this encounter Care Teams Handicapper Harness Racing Relationship Specialty Start Date End Date Jewell Monaco MD [address] [place] [address] PCP - General Internal Medicine 06/07/20 documented as of this encounter
--- OUTSIDE RECORDS SUMMARY | 2024-10-28 16:18 | XMS_ITS | Clinical Summary ---
Author Organization [facility] Address [address] [place] [phone] Phone Care Team Providers Care Silviculture Professor Name Role Phone Jewell Monaco MD Primary Care Provider Allergies No known active allergies Medications oxygen (O2) gas Inhale Acti ve anastrozole (ARIMIDEX) 1 MG chemo tablet Take 1 tablet by mouth 1 (one) time each day Active famotidine (PEPCID) 40 MG tablet Take 1 tablet by mouth in the morning and 1 tablet in the evening. 11/17/19 17 Active guaiFENesin (MUCINEX) 600 MG 12 hr tablet Take 1 tablet by mouth 11/17/19 17 Active fluticasone (FLONASE) 50 MCG/ACT nasal spray SHAKE LIQUID AND USE 2 SPRAYS IN EACH NOSTRIL DAILY 01/12/20 21 Active docusate sodium (COLACE) 100 MG capsule Take 100 mg by mouth in the morning and 100 mg in the evening. Active torsemide (DEMADEX) 20 MG tablet Take 2 tablets by mouth 1 (one) time each day 01/12/20 23 Active thiamine (VITAMIN B-1) 100 MG tablet Take 100 mg by mouth 1 (one) time each day 01/12/20 23 Active mirtazapine (REMERON) 15 MG tablet Take 15 mg by mouth every night 01/18/20 23 Active Multiple Vitamins-Minerals (PreserVision AREDS 2) capsule Take 1 tablet by mouth 1 (one) time each day Active spironolactone (ALDACTONE) 25 MG tablet Take 25 mg by mouth 1 (one) time each day Active metoprolol tartrate 25 MG tablet Take 12.5 mg by mouth in the morning and 12.5 mg in the evening. Active aspirin (ST ERIKA) 81 MG EC tablet Take 81 mg by mouth 1 (one) time each day Active Magnesium 400 MG capsule Take 1 tablet by mouth 1 (one) time each day Active cinacalcet (SENSIPAR) 90 MG tabletIndications:Prima ry hyperparathyroidism (HCC) Take 1 tablet (90 mg total) by mouth in the morning and 1 tablet (90 mg total) in the evening. 180 tablet 3 03/12/20 24 025 Active Cholecalciferol (Vitamin D3) 50 MCG (1999 UT) tabletIndications:Vitam in D deficiency, not otherwise specified Take 2,000 Units by mouth 1 (one) time each day 30 tablet 11 03/16/20 24 025 Active Active Problems Problem Noted Date Diagnosed Date Chronic kidney disease, stage 2 (mild) 4 Serum creatinine above reference range Assessment & Plan (08/29/2023 8:04 PM EDT): Creat bumped up to 1.1 from the stable 0.8 she was living at [facility] Recheck Renal panel in 6 weeks, after added diuretic Tx Vitamin D deficiency, not otherwise specified Assessment & Plan (08/29/2023 8:10 PM EDT): History of low vitamin D25 level Not currently on supplementation 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 02/13/2023 02/13/2023 Benign essential hypertension 02/13/2023 Cystocele 02/13/2023 02/13/2023 Disorder of bone and articular cartilage 023 02/13/2023 Esophageal reflux finding 02/13/20232022 Gynecological examination normal 02/13/2023 02/13/2023 Menopausal symptom 02/13/2023 02/13/2023 Postmenopausal atrophic vaginitis 02/13/2023 02/13/2023 Screening for malignant neoplasm of colon 202202/13/2023 Gout 09/19/2022 02/13/2023 Asthenia 09/18/2022 02/13/2023 Carcinoma in situ of right breast 09/18/2022 02/13/2023 Chronic obstructive pulmonary disease 09/18/2022 02/13/2023 Depressive disorder 09/18/2022 02/13/2023 Gastro-esophageal reflux disease without esophag itis 09/18/2022 02/13/2023 Acute respiratory failure with hypercapnia 09/1702/13/2023 Chronic systolic congestive heart failure 202202/13/2023 Hyperlipidemia 09/17/2022 02/13/2023 Muscle wasting and atrophy, not elsewhere classified, multiple sites 09/17/2022 02/13/2023 Protein-calorie malnutrition 09/17/2022 Recurrent major depressive disorder 09/17/2022 02/13/2023 Other chest pain 04/05/2022 02/13/2023 Overview (02/13/2023): Last Assessment & Plan: As I noted did have this episode of heaviness in her chest and she is not really clear how often she is getting this. However I am concerned that this may be ischemic mediated. I do not believe is from the aortic stenosis although this could be a possibility. I did speak to her though about undergoing a nuclear stress test. She does not want this. I did tell her though if she ever had any discomfort in her chest that lasted over 15 to 20 minutes call 911. Aortic valve stenosis 01/10/2022 Prediabetes 01/09/2022 Paroxysmal atrial fibrillation 01/09/2022 Hypertensive disorder 01/09/2022 Cardiac murmur 01/09/2022 Atelectasis 08/01/2021 02/13/2023 Overview (02/13/2023): D/C'd from [facility] on 07/31/21 Epistaxis 08/01/2021 02/13/2023 Type 2 diabetes mellitus 08/01/2021 023 Acute exacerbation of chronic congestive heart f ailure 07/19/2021 02/13/2023 Primary hyperparathyroidism 10/25/2020 Assessment & Plan (08/29/2023 8:05 PM EDT): Calcium down to 10.6 recently from 11.0 in 01/2023 Continue current increased dose of Sensipar 90 mg BID Continue to monitor Q 6 mos Calculus of kidney 10/25/2020 Aortic valve stenosis 06/07/2020 Overview (10/25/2020): Last Assessment & Plan: Patient does have 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 I reviewed this with her and her son. I did speak about the possibility of a TAVR if the aortic stenosis is not severe. At this time the patient seems somewhat reluctant although somewhat talked her about this. I have you repeat her echocardiogram. Longstanding persistent atrial fibrillation 11/2020 Overview (10/25/2020): Last Assessment & Plan: Patient remains in A. fib the rate appears to be controlled. Past we have had spoken to her on many occasions about anticoagulation and she does not want to go on anticoagulation. Body mass index 40+ - severely obese 08/01/2017 Dependence on supplemental oxygen 08/01/2017 Resolved Problems Problem Noted Date Diagnosed Date Resolved Date History of malignant neoplasm of breast 01/09/2022 01/09/2022 Edema 10/25/2020 01/09/2022 Disorder of calcium metabolism 10/25/2020 01/09/2022 Tachycardia 10/25/2020 01/09/2022 Pericardial effusion 09/14/2020 022 Overview (10/25/2020): Last Assessment & Plan: Patient did have large pericardial effusion. Etiology is not clear. As I noted cytology is negative for malignant cells. It is not clear she may have had a viral pericarditis. I did discuss discussed the natural history of this with the son and the patient. She is to have a repeat limited echo on . Shortness of breath 09/14/2020 01/10/20 22 Overview (10/25/2020): Last Assessment & Plan: The patient has had some shortness of breath. The son thinks some of this is anxiety related although I am concerned some is continue to be recurrent heart failure or from a pericardial effusion. When she was initially discharged from the hospital she was sent home on her medications. Today I think she may be slightly volume up at this time I will continue her current dose of torsemide. I did ask her if she thought she needed to go to the emergency room from the point of view of her breathing that she did not. I did explain to this time if this got worse to bring her to the emergency room. This time we will continue with the current dose of torsemide. Congestive heart failure 08/01/201703/2022 Overview (10/25/2020): Last Assessment & Plan: Patient does have chronic diastolic heart failure. Patient does appear to be volume overloaded. She has been consuming a fair amount of salt I have again discussed this with him. I again check blood work and may increase her diuretic for short period of time. Allergic rhinitis 02/25/2017 01/09/2022 Pneumonitis 02/25/2017 01/09/2022 Obstructive sleep apnea syndrome 02/15/2017 01/09/2022 Encounters Date Type Department Care Team Description 09/28/2024 Orders Only [facility] [address] [phone] Kesha Dempsey ARNP Primary hyperparathyroidism (HCC); Chronic kidney disease, stage 2 (mild) from Last 3 Months Immunizations Immunization Administration Dates Next Due Influenza Split High Dose Pr eservative Free IM 04/28/2015,01/27/2015 Influenza, Unspecified 06/28/2022,05/08/2021 Moderna SARS-COV-2 05/08/2021,11/02/2020, 021 Pneumococcal Conjugate 13-Valent 02/03/2015 Pneumococcal Polysaccharide 05/13/2011 SARS-CoV-2, Unspecified 05/08/2021,11/02/2020, Shingrix 04/18/2018,01/12/2018 Tdap 10/18/2014 Zoster 04/18/2018,01/12/2018 Family History Medical History Relation Comments Hypertension Child x2 Hypertension Father Heart disease Mother Hypertension Mother Hypertension Sibling Relation Status Comments Child Father Mother Sibling Social History Tobacco Use Types Packs/Day Years Used Date Smoking Tobacco: Never Smokeless Tobacco: Never Tobacco Cessation:Counseling Given: Not Answered Alcohol Use Standard Drinks/Week Comments No 0 (1 standard drink = 0.6 oz pur e alcohol) Comments Unknown Sex and Gender Information Value Date Recorded Sex Assigned at Not on file Legal Sex Female 5:16 PM EST Gender Identity Not on file Sexual Orientation Not on file Last Filed Vital Signs Vital Sign Reading Time Taken Comments Blood Pressure 104/70 03/12/2024 4:22 PM EST Pulse 87 03/12/2024 4:22 PM EST Temperature - - Respiratory Rate - - Oxygen Saturation 90% 03/12/2024 4:22 PM EST Inhaled Oxygen Concentration - - Weight 88.5 kg (195 lb) 03/12/2024 4:22 PM EST Height 152.4 cm (5') 12/31/2019 12:00 PM EDT Body Mass Index 38.08 12/31/2019 12:00 PM EDT Plan of Treatment Upcoming Encounters Date Type Department Care Team (Late st Contact Info) Description 12/10/2024 4:00 PM EDT Office Visit [facility] [address] [phone] Kesha Dempsey ARNP [address] [phone] Health Maintenance Due Date Last Done Comments Diabetes: Ophthalmology Exam 01/10/2022 Diabetes: Pedal Pulse Checked 01/10/2022 Diabetes: Sensory Foot Exam 01/10/2022 Diabetes: Visual Foot Exam 01/10/2022 Diabetes: Hemoglobin A1C 11/11/2024 08/12/2024 Influenza Vaccine (Season Ended) 2024 06/28/2022, 05/08/2021, 04/28/2015, Additional history exists Pneumococcal Vaccine: 50+ Years Completed 02/03/2015, 05/13/2011 Pneumococcal Vaccine: Peds (0 to 5 Years) and At-Risk Patients (6 to 49 Years) Discontinued 02/03/2015, 05/13/2011 Hepatitis B Vaccine Aged Out No longe r eligible based on patient's age to complete this topic Procedures Procedure Name Priority Date/Time Associated Diagnosis Comments PTH, INTACT Routine 09/23/2024 4:59 PM EDT MAGNESIUM Routine 09/23/2024 4:59 PM EDT VITAMIN D 25 HYDROXY Routine 09/23/2024 4:59 PM EDT URINE ALBUMIN / CREATININE RATIO Routine 09/23/2024 4:59 PM EDT PROTEIN / CREATININE RATIO, URINE Routine 09/23/2024 4:59 PM EDT CBC Routine 09/23/2024 4:59 PM EDT RENAL FUNCTION PANEL Routine 09/23/2024 4:59 PM EDT from Last 3 Months Results * (ABNORMAL) Protein, Total, Random Urine w/Creatinine (Protein/Creat Ratio) (09/23/2024 4:59 PM EDT) Creatinine, Ur 13.9 Not Estab. mg/dL [facility] Protein, Ur 4.9 Not Estab. mg/dL [facility] Urine Protein/Creati nine Ratio 353(H) 0 - 200 mg/g creat [facility] 09/23/2024 4:59 PM EDT 09/23/2024 us Kesha MORILLO LAB URINE ORDERABLES Final Result [facility] [address] [place] [phone] * (ABNORMAL) Urine Albumin / Creatinine Ratio (09/23/2024 4:59 PM EDT) Albumin, Urine 6.5 Not Estab. ug/mL [facility] Albumin/Creatin ine Ratio 47(H) 0 - 29 mg/g creat [facility] Comment: Normal: 0 - 29 Moderately increased: 30 - 300 Severely increased: >300 09/23/2024 4:59 PM EDT 09/23/2024 [facility] LAB URINE ORDERABLES Final Result Performing Organization Address City/[facility]/ZIP Co de Phone Number [facility] [address] [place] [address] * (ABNORMAL) Vitamin D 25 Hydroxy (09/23/2024 4:59 PM EDT) Vitamin D, 25-OH, Total 28.7(L) 30.0 - 100.0 ng/mL [facility] Comment: Vitamin D deficiency has been defined by the [place] of [employer] and an Endocrine Society practice guideline as a level of serum 25-OH vitamin D less than 20 ng/mL (1,2). The Endocrine Society went on to further define vitamin D insufficiency as a level between 21 and 29 ng/mL (2). 1. IOM ([place] of [employer]). 2010. Dietary reference intakes for calcium and D. [place]: The National Academies Press. 2. Beatriz MF, Froy NC, Manolo COYNE, et al. Evaluation, treatment, and prevention of vitamin D deficiency: an Endocrine Society clinical practice guideline. JCEM. 2010; 96(7):1911-30. 09/23/2024 4:59 PM EDT 09/23/2024 Kesha Dempsey [facility] LAB BLOOD ORDERABLES Final Result Performing Organization Address City/[facility]/ZIP Co de Phone Number [facility] [address] [place] [phone] * (ABNORMAL) CBC (09/23/2024 4:59 PM EDT) WBC 12.6(H) 3.4 - 10.8 x10E3/uL [facility] RBC 3.38(L) 3.77 - 5.28 x10E6/uL [facility] Hemoglobin 10.9(L) 11.1 - 15.9 g/dL [facility] Hematocrit 33.3(L) 34.0 - 46.6 % [facility] MCV 99(H) 79 - 97 fL [facility] MCH 32.2 26.6 - 33.0 pg [facility] MCHC 32.7 31.5 - 35.7 g/dL [facility] RDW 12.7 11.7 - 15.4 % [facility] Platelets 132(L) 150 - 450 x10E3/uL [facility] 09/23/2024 4:59 PM EDT 09/23/2024 [facility] Final Result Performing Organization Address City/[facility]/ZIP Co de Phone Number [facility] [address] [place] [phone] * (ABNORMAL) PTH, Intact (09/23/2024 4:59 PM EDT) PTH 94(H) 15 - 65 pg/mL [facility] 09/23/2024 4:59 PM EDT 09/23/2024 [facility] Final Result Performing Organization Address City/[facility]/ZIP Co de Phone Number [facility] [address] [place] [phone] * Magnesium (09/23/2024 4:59 PM EDT) Pathologist [facility] Magnesium 2.0 1.6 - 2.3 mg/dL [facility] 09/23/2024 4:59 PM EDT 09/23/2024 Kesha Ke [facility] LAB BLOOD ORDERABLES Final Result [facility] [address] [place] [phone] * (ABNORMAL) Renal Function Panel (09/23/2024 4:59 PM EDT) Glucose 101(H) 70 - 99 mg/dL [facility] BUN 25 8 - 27 mg/dL [facility] Sodium 147(H) 134 - 144 mmol/L [facility] Potassium 3.9 3.5 - 5.2 mmol/L [facility] Chloride 97 96 - 106 mmol/L [facility] Calcium 10.2 8.7 - 10.3 mg/dL [facility] Albumin 4.1 3.7 - 4.7 g/dL [facility] Creatinine 0.83 0.57 - 1.00 mg/dL [facility] eGFR CKD-EPI CR 2020 69 >59 mL/min/1.7 3 [facility] BUN/Creatinine Ratio 30(H) 12 - 28 [facility] Bicarbonate (CO2) 31(H) 20 - 29 mmol/L [facility] Phosphorus 3.3 3.0 - 4.3 mg/dL [facility] 09/23/2024 4:59 PM EDT 09/23/2024 Kesha Dempsey [facility] LAB BLOOD ORDERABLES Final Result [facility] [address] [place] [phone] from Last 3 Months Insurance Medicare [facility] Medicare Care Teams Silviculture Professor Relationship Specialty Start Date End Date Jewell Monaco MD [address] [place] [id number] PCP - General Internal Medicine 02/13/23
== END 2024-10-28 16:02 | disposition home or self-care (01) ==
LOC: HO.HPS 15:41
PROVIDERS: PCP Internal Medicine; Visit Provider Hospitalist
DX: J98.4 Other disorders of lung (principal); I35.0 Nonrheumatic aortic (valve) stenosis; J44.9 Chronic obstructive pulmonary disease, unspecified; J31.0 Chronic rhinitis; L03.115 Cellulitis of right lower limb
CPT/HCPCS: 99214; G2211

== ENCOUNTER → 2024-10-28 15:40 | Outpatient (BNVA) | payer MEDICARE, BC, SELFPAY | PROVIDERS: PCP Internal Medicine; Visit Provider Hospitalist | DX: J98.4 Other disorders of lung (principal); I50.9 Heart failure, unspecified; I35.0 Nonrheumatic aortic (valve) stenosis; G47.33 Obstructive sleep apnea (adult) (pediatric); R06.09 Other forms of dyspnea; Z99.89 Dependence on other enabling machines and devices; L03.115 Cellulitis of right lower limb; J84.9 Interstitial pulmonary disease, unspecified; J31.0 Chronic rhinitis; J44.9 Chronic obstructive pulmonary disease, unspecified | CPT/HCPCS: 99212 ==

== ENCOUNTER 2025-03-13 15:07 | Outpatient (AMB) | payer MEDICARE, BC, SELFPAY ==
[2025-03-13 15:09] VITALS: BP 112/60; PULSE 74; O2SAT 91; BMI 39.2
--- NOTE | 2025-03-13 15:09 | MHC.OFFVIS ---
Vital Signs 03/13/25 15:09 Height 5 ft Weight 200 lb 9.93 oz BMI 39.2 BP 112/60 Blood Pressure Location Lt brachial Position Sitting Pulse 74 Pulse Source Pulse Oximeter Pulse Oximetry (%) 91 L Oxygen Delivery Method Nasal Cannula Intake Visit Reasons: resp failure Allergies No Known Allergies Allergy (Verified 03/13/25 15:20) HPI Comments Details: The patient is a 84-year-old woman with a known history of heart failure in addition to moderate to severe aortic stenosis. She also has a history of obstructive sleep apnea and has been using her BiPAP. The BiPAP therapy has been affecting beneficial. She does use it for more than 4 hours a night. However, she is having issues because the most of also have oxygen connected and she does not have the adapter for it. I will request the adaptive from [facility]. In the meantime she continues to have dyspnea on exertion. Moderate severity. If he has a history interstitial lung disease and respiratory disease. She has responded well to albuterol in the past. However, she had a hard time with the HFA device. She probably do a lot better with the Elipta device. 02/21/2024 the patient is here for a pulmonary follow-up visit. The patient overall has been doing well. She is status post pacemaker and also a aortic valve replacement. The patient tolerated that well. Her breathing did improve partially. Although she is just tired in general. She while in the hospital stopped using the BiPAP. She had been using oxygen. And because the BiPAP was bothering her she just been just using the oxygen. She seems to be tolerating that well. Will have her get a blood gas to make sure that she is not developing significant hypercarbia. If she is she need to go back on the BiPAP. The patient also has been taking her diuretics. Seems like her volume status is overall better. She also was hospitalized with severe hypercalcemia due to medication changes and parathyroid disease and seems to be doing better from that standpoint either. She is hoping to visit [facility]. This is a long trip for her their thinking about breaking up the trip into 2 to make it easier for her. She does have a portable oxygen concentrator that is [facility] approved but she will need an off battery to last her the whole trip. 08/26/2024 the patient is here for a pulmonary follow-up visit. Overall the patient is doing fair. She was recently hospitalized at [facility] with bilateral pneumonia congestive heart failure. She was given oxygen. She was found to have acute on chronic hypercarbic respiratory failure requiring BiPAP. But, still her CO2 still elevated. The patient is currently at rehabilitation. She does continue to use oxygen 2-3 L continuous. And she seems to be tolerating that well. In addition to that she has been noted some lower extremity edema and she does have William bandages wrapped. She is currently on diuretic therapy. The patient does have underlying asthma COPD overlap syndrome. With the chronic hypercarbic respiratory failure she does have a poor prognosis and high risk for rehospitalization. I do believe that this point the noninvasive ventilator will provide her with better gas exchange improved prognosis and decrease hospitalizations. Therefore, I will talk to her current [employer] company to have her be set up with a astral noninvasive ventilator to help her with the gas exchange and her respiratory failure. Will continue with cardioprotective medications and the patient follow-up in 2-3 months. If she has any issues prior to this she will call for an earlier assessment. 10/28/2024 the patient is here for pulmonary follow-up visit. Overall the patient has been doing well. She did finally get used to the noninvasive ventilator and she is using it every night. She finds that is helping her work of breathing, headaches and overall energy levels. She continues he also use the oxygen as tolerated. She has been noticing increasing lower extremity edema with some redness likely cellulitis again. During the last visit she did receive doxycycline and she did tolerated well. I will give her another course. She should follow closely with the primary care doctor and also will help to elevate the legs further to try to help decrease some of the fluid buildup. She understands the fluid buildup will result in recurrent infections due to the stasis dermatitis and opening up the skin. Overall she is doing okay will will not do any blood work today as planned because she really has not been using the noninvasive ventilator enough. But will plan to follow-up with the blood gas the next time she comes in to see her progress with the noninvasive ventilator. In the meantime she will continue with current respiratory medicines as prescribed. The patient will return in 4-6 months if she has any issues prior to that she will call for an earlier assessment. 03/13/2025 the patient is here for pulmonary follow-up visit. The patient overall has been doing well. She continues use the oxygen with good effect. The oxygen therapy has been affecting beneficial. She does have a POC. She is wondering if she should travel. I did state that she can travel via airlines but she has a make sure she has enough backup battery power. In the meantime the patient has been using her diuretics. Recently she was having worsening lower extremity edema and her waitstaff adjusted all her diuretics. She is going to monitor closely her blood work. The patient also has been using the noninvasive ventilator at nighttime. She had stopped using it for a bit because her daughter had gone away for period of time. But it is important for her to get back into using it regularly because it is going to help with the hypercarbia. Clinically the patient is doing well she knows she needs to continue with the noninvasive ventilator to help her with the significant chronic respiratory failure. [facility] Medical History (Updated 10/28/24 @ 21:50 by Robin House MD) Pneumonia Pericardial effusion Chronic rhinitis Dyspnea Aortic stenosis Chronic restrictive lung disease MARVEL treated with BiPAP Asthma-COPD overlap syndrome Family History (Updated 03/08/20 @ 20:06 by Robin House MD) Father No problems noted. Social History Patient Tobacco Use Status: Never used Tobacco Review of Systems Const Denies chills, Reports fatigue, Denies fever(s) and Denies weight loss ENT Denies dizziness, Denies lip swelling and Denies tongue swelling Card Denies chest pain, Reports leg edema, Denies lightheadedness, Denies palpitations, Reports dyspnea on exertion, Denies orthopnea and Denies other Resp Reports cough and Reports dyspnea on exertion GI Denies hematochezia and Denies change in stool character Denies hematuria, Reports urinary incontinence, Reports urinary hesitancy and Reports urinary urgency Musc Reports abnormal gait, Reports myalgias, Reports atrophy, Reports muscle weakness and Denies tingling Neuro Reports abnormal gait, Denies dizziness and Denies tingling Psych Denies no additional complaints Endo Reports fatigue and Denies palpitations Armin/Lymph Denies easy bleeding and Denies lymphadenopathy Aller/Immun Denies lip swelling and Denies tongue swelling Physical Exam Vital Signs: Last Vital Signs Pulse 74 03/13/25 15:09 BP 112/60 03/13/25 15:09 Pulse Ox 91 L 11/14/25 15:09 Oxygen Delivery Method Nasal Cannula 03/13/25 15:09 BMI result Body Mass Index 39.2 Const General: alert Neck Neck: Yes normal visual inspection, Yes full ROM and Yes no lymphadenopathy Chest Chest palpation & inspection: normal inspection of the chest Resp Effort & Inspection: normal respiratory effort Auscultation: no crackles and diminished lung sounds Cardio Rate: regular rate Rhythm: regular rhythm Heart sounds: S1 normal heart sound present, S2 normal heart sound present and Murmur heart sound present systolic IV/ GI Palpation (GI): Soft to palpation and nontender Auscultation: normal bowel sounds General: Yes no CVA tenderness Back/Spine/Pelvis Back: no CVA tenderness Skin General skin exam: erythema (RLE) Assessment & Plan Assessment & Plan (1) Chronic restrictive lung disease: Code(s): J98.4 - Other disorders of lung Category: Medical (2) Aortic stenosis: Comment: s/p TVAR Code(s): I35.0 - Nonrheumatic aortic (valve) stenosis Category: Medical Qualifiers: Cardiac valve disease etiology: nonrheumatic Qualified Code(s): I35.0 - Nonrheumatic aortic (valve) stenosis (3) Asthma-COPD overlap syndrome: Code(s): J44.9 - Chronic obstructive pulmonary disease, unspecified Category: Medical (4) Chronic rhinitis: Code(s): J31.0 - Chronic rhinitis Category: Medical Plan continue NIV 2L oxygen. Bloodwork and blood gas next visit Continue Incruse short-acting beta agonist as needed continue fluticasone nasal spray for her allergic rhinitis continue antihistamines Follow-up in 6 months Coding Level of Care Code Est Pt Level 4 (31327) Complex EM visit Add On G2211 Diagnoses Chronic restrictive lung disease J98.4 Nonrheumatic aortic valve stenosis I35.0 Cardiac valve disease etiology: nonrheumatic Asthma-COPD overlap syndrome J44.9 Chronic rhinitis J31.0 Time Spent (min) 17
--- OUTSIDE RECORDS SUMMARY | 2025-03-13 23:16 | XMS_ITS | Data Portability ---
Author Organization [facility], Main Office Address [address] [facility], [address] [place] [address] Care Team Providers Care Associate Sales Manager Name Role Phone SERA MOOKIE HASSAN Primary Care Provider [phone] ASHLEY JOSE ELIAS 2ND FLOOR OTHER Assessment No assessment recorded. Plan of Treatment Reminders Order Date Submit Date Provider Last Modified By Organization Details Last Modified Time Details Appointments None record ed. Lab None record ed. Referral None record ed. Procedures None record ed. Surgeries None record ed. Imaging None record ed. Medication Orders None record ed. Patient TargetsNo targets recorded. Patient InstructionsNo instructions recorded. Reason for Referral None Reported. Problems Name Problem SNOMED Code Status Onset Date Resolution Date Notes Provider Name and Address Organization Details Recorded Time Interstit ial lung disease 079006659 Completed 202205/23/2023 DANIEL HURLEY [address] [facility], [address], [place], [address], [facility] 4 16:53:14 Gastroeso phageal reflux disease without esophagit is 327730677 Active 2022 MONICA AARON NP [address] [facility], [address], [place], [address], [facility] [employer] 3 11:54:32 Congestiv e heart failure 78467858 Active 2022 MONICA AARON NP [address] [facility], [address], [place], [address], [facility] 3 11:54:55 Atrial fibrillat ion 85290533 Active 2022 MONICA AARON NP [address] [facility], [address], [place], [address], [place] [employer] 3 11:55:33 Asthenia 54393090 Active 2022 MONICA AARON NP [address] [facility], [address], [place], [address], [employer] 3 11:55:39 Depressiv e disorder 47166383 Active 2022 MONICA AARON NP [address], [address], [place], [address], [facility] 3 12:06:37 Hyperpara thyroidis m 63462781 Active 2022 MONICA AARON NP [address] [facility], [address], [place], [address], [employer] 3 12:40:45 Acute non-ST segment elevation myocardia l infarctio n 024827027 Active 2023 DANIEL HURLEY [address] [facility], [address], [place], [address], [employer] 4 16:55:08 History of ductal carcinoma in situ of breast 223350406699 04 Active 2023 DANIEL HURLEY [address] [facility], [address], [place], [address], [employer] 4 17:23:21 Low grade B-cell lymphoma 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 Medical Equipment None Reported. Allergies No known drug allergies Vitals Date Recorded Body height Provider Name an d Address Organization Details Last Updated DateTime 06/05/2023 154.94 cm DANIEL HURLEY [address], [address], [place], [address], [facility] [employer] [facility] 06/05/2023 18:16:12 Social History Question Answer Notes LastModified by Organizat ion Details LastModified Time Tobacco Smoking Status Never Smoker MONICA AARON NP [address] [facility], [address], [place], [address], [facility] [employer] 09/18/2022 11:47:02 Do You Have An Advance Directive? Yes Information not available 05/24/2023 What Is Your Level Of Caffeine Consumption? Occasional Information not available 05/23/2023 What Is Your Code Status? DNR/DNI Information not available 05/23/2023 Where Do You Live? [facility] Lives With Daughter Bedroom Is On First Floor. Information not available 05/23/2023 Legal Guardian? No Informati on not available 09/19/2022 Do You Have A Medical Power Of Press Cutter? Yes Information not available 09/19/2022 What Was The Date Of Your Most Recent Tobacco Screening? 05/24/2023 Information not available 05/24/2023 Do You Have An Out Of Hospital DNR? Yes Information not available 05/23/2023 What Is Your Relationship Status? Information not available 05/23/2023 Has Tobacco Cessation Counseling Been Provided? No N/a As Pt Is A Non-smoker Information not available 09/19/2022 Do You Have Any Dietary Restrictions? No Information not available 05/23/2023 Sex: Unknown Functional Status Question Answer Note LastModified by Organizat ion Details LastModified Time Do you use any illicit or recreational drugs? No Information not available 09/18/2022 Do you or have you ever used any other forms of tobacco or nicotine? No Information not available 09/19/2022 What is your level of alcohol consumption? None Information not available 09/18/2022 Mental Status None recorded. Family History Nothing Reported Notes:Mother: Hypertension F ather: Hypertension Sister: Stroke Brother: Stroke Medical History No medical history recorded. Gynecological HistoryNo gynecological history recorded. Obstetrics History GPAL:G 0 P 0 0 0 0 Immunizations Vaccine Type Date Status Note Provider Nam e and Address Organization Details Recorded Time influenza, unspecified formulation 2 completed Hedy Farooq [facility] 09/19/2022 12:35:08 SARS-COV-2 (COVID-19) vaccine, UNSPECIFIED 2 completed Hedy Farooq [facility] 09/19/2022 12:35:34 SARS-COV-2 (COVID-19) vaccine, UNSPECIFIED 1 completed Hedyramon Farooq [facility] 09/19/2022 12:35:41 SARS-COV-2 (COVID-19) vaccine, UNSPECIFIED 1 completed Hedy Farooq [facility] 09/19/2022 12:36:05 zoster, unspecified formulation 8 completed Hedy Farooq [facility] 09/19/2022 12:36:38 zoster, unspecified formulation 8 completed Hedy Farooq [facility] 09/19/2022 12:36:48 Tdap 5 completed Hedy Farooq [facility] 09/19/2022 12:37:44 pneumococcal polysaccharide PPV23 2 completed Hedy Farooq [facility] 09/19/2022 12:38:03 Influenza, adjuvanted, quadrivalent, PF 3 completed Tori Miranda [facility] 05/18/2023 12:35:24 Influenza, adjuvanted, quadrivalent, PF 3 completed Tori Miranda [facility] 07/26/2023 13:00:01 Past Encounters Encounter ID Performer Location Encounter Start Date Encounter Closed Date Diagnosis/Indication Diagnosis SNOMED-CT Code Diagnosis ICD10 Code Diagnosis IMO Codes Diagnosis Note [id number] LYUDMILA HUTCHINSON [address] [place] [address] [place] [address] 09/18/2022 10:13:51 09/20/2022 10:04:06 Interstitial lung disease 942976608 J84.9 prednisone 30 mg dailyalbut ashleigh inhaler 2 puffs q6hr prn Congestive heart failure 56988516 I50.9 torsemide 40 mg bid Asthenia 89505120 R53.1 PT OT eval and treatfall precaution sfrequent safety checks Atrial fibrillation 4943 6004 I48.91 digoxin 125 mcg daily Carcinoma in situ of right breast 3531993753 27798 D05.91 anastrazol e 1 mg daily Depressive disorder 3548 9007 F32.A remeron 15 mg hspsych prn Gastroesop hageal reflux disease without esophagitis 069830027 K21.9 protonix 40 mg daily Hyperparathyroidism 6699 9008 E21.3 sensipar 30 mg daily [id number] Kady Ochoa MD [address] [address] 09/19/2022 18:25:17 09/29/2022 15:29:14 Interstitial lung disease 712610047 J84.89 With baseline dysfunctio n, pt. feels back to baselineCo ntinue albuterol inhaler 2 puffs q 6 hrs prnMonitor resp. status Congestive heart failure 07291507 I50.32 With increased edema today, but no increased resp. sxs.Contin ue torsemide 40 mg BID and digoxin 125 mcg.Monito r resp. status, fluid status, wts and labs. Asthenia 62333199 R53.1 Very deconditio lina.Needs PT/OT for strengthen ing, balance, gait training, safety and function.C ontinue fall precaution s.Monitor for safety. Atrial fibrillation 4943 6004 I48.0 Rate in good control on meds as above.Not on AC due to fall riskMonito r HR. Carcinoma in situ of right breast 4637075304 56724 D05.81 Continue anastrazol e 1 mg qd.ZF/U with oncology/b reast surgeon as planned. Depressive disorder 3548 9007 F33.8 Seen by psych inpt. and mirtazapin e increased. Continue mirtazapin e 15 mg qhsMood good today.Chitra tor mood.Consu lt psych prn Gastroesop hageal reflux disease without esophagitis 549916354 K21.9 No current sxsContinu e pantoprazo le 40 mg qd.Monitor Hyperparathyroidism 6699 9008 E21.0 Restarted on sensipar 30 mg qd while inpt. Had stopped because insurance wasn't covering.N eeds this to control Ca+ level.Chirta tor labs. Gout 19713562 M10.472 On prednisone 30 mg qd for this until 09/22.Pt says it's improving, but still hurts.Will get uric acid with next wks labs. Was nl inpt, but could be during acute attack. [id number] MONICA AARON NP [address] [address] 09/26/2022 14:46:10 10/05/2022 09:58:14 Interstitial lung disease 728088626 J84.89 prednisone 30 mg dailyalbut ashleigh inhaler 2 puffs q6hr prn Asthenia 42359896 R53.1 PT OT eval and treatfall precaution sfrequent safety checks [id number] MONICA AARON NP [address] [address] 09/29/2022 11:39:45 10/05/2022 13:53:24 Interstitial lung disease 625327915 J84.89 prednisone 30 mg dailyalbut ashleigh inhaler 2 puffs q6hr prn Depressive disorder 3548 9007 F33.8 remeron 15 mg hspsych prn Asthenia 07374466 R53.1 PT OT eval and treatfall precaution sfrequent safety checks [id number] MONICA AARON NP [address] [address] 10/04/2022 10:33:12 10/10/2022 12:10:59 Interstitial lung disease 269153653 J84.89 prednisone 30 mg dailyalbut ashleigh inhaler 2 puffs q6hr prnO2 prn Depressive disorder 3548 9007 F33.8 remeron 15 mg hspsych prncontinu e to monitor mood for any changes Asthenia 99166404 R53.1 PT OT eval and treatfall precaution sfrequent safety checks [id number] MONICA AARON NP [address] [address] 10/06/2022 11:23:35 10/10/2022 13:55:57 Interstitial lung disease 987661661 J84.9 prednisone 30 mg dailyalbut ashleigh inhaler 2 puffs q6hr prn Congestive heart failure 28490910 I50.9 torsemide 40 mg bidmonitor for worsening edema or sobcompres guerrero socks for edema Asthenia 02176029 R53.1 PT OT eval and treatfall precaution sfrequent safety checks Atrial fibrillation 4943 6004 I48.91 digoxin 125 mcg dailymonit or heart rate Carcinoma in situ of right breast 9700426395 47114 D05.91 anastrazol e 1 mg daily Depressive disorder 3548 9007 F32.A remeron 15 mg hspsych prn Gastroesop hageal reflux disease without esophagitis 192584803 K21.9 protonix 40 mg daily Hyperparathyroidism 6699 9008 E21.3 sensipar 30 mg daily [id number] PETER DE LA TORRE, DANIEL RAMIREZ JOSE ELIAS [address] [facility] [place] [address] 05/23/2023 08:11:34 05/25/2023 10:21:24 Cellulitis of left lower limb 5809305843 2878014 L03.116 left lower extremity/ vivar swelling with 3+ edema with increased redness, very warm and tender.not ed with scabbed areadopple r in acute care neg for DVTdaughte r reports swelling in acute care but redness and pain is newCrCl 91Start keflex 500 mg QID for 5 days with probiotic BID for 7 daysmonito r for resolution , nursing to update provider with neg changes. Acute non- ST segment elevation myocardial infarction 856024204 I21.4 HX of severe aortic stenosis-s /p Cath on 05/17 in acute care.Estrella nue aspirinout patient TAVR once she gets stronger after rehabilita tion. Laboratory test result abnormal 693740357 R89.9 Hx primary hyperparat hyroidism, lymphoprol iferative B-cell lymphomaRe pleted/res olved in acute care.Hypop hosphatemi a, Hypomagnes emia, Severe hypercalce bianca- received zoledronic acid,calci tonin in acute care.leuko cytosis-in acute care afebrile, Blood Cx : negative. U/A negative. No pneumonia on CXR.-likel y reactive stress Vs underlying lymphoprol iferative disease. 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 Atrial fibrillation 4943 6004 I48.91 no on anticoags, patient refusedHR controlled Depressive disorder 3548 9007 F32.A remeron 15 mg hsmonitor got mood and behavioral changespsy ch prn Constipation 85454310 K5 9.00 CT abdomen : mild rectum thickening ? stool impaction . Diverticul osis.Bowel regimen scheduled given and has BM.Continu e bowel regimen in rehab.mari lax 17 gm daily Hyperparathyroidism 6699 9008 E21.3 sensipar 90 mg dailymonit or labs Gastroesop hageal reflux disease without esophagitis 706392623 K21.9 Famotidine 20 mg dailymonit or for GI upset. Asthenia 16905479 R53.1 PT OT eval and treatfall precaution sfrequent safety checks Congestive heart failure 39238189 I50.9 3+edemawea r Teds stocking/t josee off at nighteleva ashley legs when OOBlasix 40 mg dailyPotas sium 10 nora ER dailymonit or weight, sob., edema History of ductal carcinoma in situ of breast 3040511144 9104 Z86.000 Anastrozol e Oral Tablet 1 MG Low grade B-cell lymphoma 324975540 C85.10 Normal immunofixa tion.CT chest done inhouse did not evaluate for lymphadeno kenrick.Chiquis ent reluctant to have more imaging.-F /u with [facility] hematology [id number] [facility] [address] [place] [address] [place] [address] 05/24/2023 17:03:37 06/06/2023 12:08:36 Acute non-ST segment elevation myocardial infarction 540646788 I21.4 Was txed with heparin inpt.Cath without sig coronary artery disease.Co ntinue ASA 81 mg qd.Monitor for sxs.F/U with cardio as planned. Atrial fibrillation 4943 6004 I48.19 Rate in good control on no meds, dig stopped inpt.Not on AC due to pt preference after recurrent epistaxis and bruising.M onitor HR Depressive disorder 3548 9007 F33.8 Continue mirtazapin e 15 mg qhsMood good today.Chitra tor mood.Consu lt psych prn Constipation 03057778 K5 9.09 Continue bowel meds as ordered.Mo nitor bowel function. Hyperparathyroidism 6699 9008 E21.2 With severe hypercalce bianca on admission, now almost WNL.Contin ue sensipar 90 mg qd and mag ox 400 mg qd,Monitor labs Gastroesop hageal reflux disease without esophagitis 967156898 K21.9 No current sxs.Contin ue famotidine 20 mg qdMonitor sxs Asthenia 71604084 R53.1 Very deconditio lina.Needs PT/OT for strengthen ing, balance, gait training, safety and function.C ontinue fall precaution s.Monitor for safety. Congestive heart failure 81665686 I50.32 With baseline peripheral edemaConti nue lasix 40 mg qd and KCl 10 meq qd to prevent hypokalemi a.Continue fluid restrictio n of 2000 ml qdMonitor resp. status, fluid status, wts and labs. History of ductal carcinoma in situ of breast 6599603678 9104 Z86.000 Continue anastrozol e 1 mg qdF/U with onc/breast surgeon. Low grade B-cell lymphoma 904030686 C85.10 Normal immunofixa tion.CT chest done inhouse did not evaluate for lymphadeno kenrick.Chiquis ent reluctant to have more imaging.F/ u with [facility] hematology Severe aor tic valve stenosis 414941142 I35.0 Plan is for TAVR after she completes rehab.Chitra ferrer sxs. Interstiti al lung disease 030114414 J84.89 With baseline dysfunctio n.Continue albuterol inhaler 2 puffs q 6 hrs prnMonitor resp. status Cellulitis of right lower limb 2726090687 7830045 L03.115 Not clearly cellulitis , but legs are clearly different. Continue cephalexin 500 mg QID for 5 days with probiotic BID for 7 Dada encouraged pt to keep legs elevated as much as possible.M onitor for improvemen t [id number] DANIEL HURLEY [address] [place] [address] [place] [facility] [place] [place] [address] 05/29/2023 07:46:54 06/06/2023 08:10:26 Cellulitis of left lower limb 5220761909 7165996 L03.116 left lower extremity/ vivar swelling with 3+ edema with increased redness, very warm and tender.not ed with scabbed areadopple r in acute care neg for DVTdaughte r reports swelling in acute care but redness and pain is newCrCl 91Start keflex 500 mg QID for 5 days with probiotic BID for 7 daysmonito r for resolution , nursing to update provider with neg changes. Acute non- ST segment elevation myocardial infarction 116905089 I21.4 HX of severe aortic stenosis-s /p Cath on 05/17 in acute care.Estrella nue aspirinout patient TAVR once she gets stronger after rehabilita tion. Atrial fibrillation 4943 6004 I48.91 no on anticoags, patient refusedHR controlled Depressive disorder 3548 9007 F32.A remeron 15 mg hsmonitor got mood and behavioral changespsy ch prn Constipation 46002426 K5 9.00 miralax 17 gm daily Hyperparathyroidism 6699 9008 E21.3 sensipar 30 mg dailymonit or labs Gastroesop hageal reflux disease without esophagitis 694911757 K21.9 Famotidine 20 mg dailymonit or for GI upset. Asthenia 57257178 R53.1 PT OT eval and treatfall precaution sfrequent safety checks Congestive heart failure 95950619 I50.9 3+edema -wear Teds stocking/t josee off at nightencou raged elevation of legs when OOBlasix 40 mg dailyPotas sium 10 nora ER dailymonit or weight, sob., edema History of ductal carcinoma in situ of breast 2803530136 9104 Z86.000 Anastrozol e Oral Tablet 1 MG Low grade B-cell lymphoma 183004678 C85.10 Normal immunofixa tion.CT chest done inhouse did not evaluate for lymphadeno kenrick.Chiquis ent reluctant to have more imaging.-F /u with [facility] hematology Laboratory test result abnormal 547034230 R89.9 Hx primary hyperparat hyroidism, lymphoprol iferative B-cell lymphomaRe pleted/res olved in acute care.Hypop hosphatemi a, Hypomagnes emia, Severe hypercalce bianca- received zoledronic acid,calci tonin in acute care.leuko cytosis-in acute care afebrile, Blood Cx : negative. U/A negative. No pneumonia on CXR.-likel y reactive stress Vs underlying lymphoprol iferative disease. 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 [id number] PETER DE LA TORRE, [facility]EL [facility] [address] [place] [address] rd [place] [address] 05/31/2023 11:52:55 06/06/2023 12:37:36 Cellulitis of left lower limb 4409930840 8806287 L03.116 3+ edemakefle x 500 mg QID for 5 days with probiotic BID for 7 days-compl eted Acute non- ST segment elevation myocardial infarction 311013412 I21.4 HX of severe aortic stenosis-s /p Cath on 05/17 in acute care.Estrella nue aspirinout patient TAVR once she gets stronger after rehabilita tion. Atrial fibrillation 4943 6004 I48.91 no on anticoags, patient refusedHR controlled Depressive disorder 3548 9007 F32.A hydroxyzin e 50 mg ordered q6 prnremeron 15 mg hsmonitor got mood and behavioral changespsy ch prn Constipation 97534299 K5 9.00 miralax 17 gm daily Hyperparathyroidism 6699 9008 E21.3 sensipar 30 mg dailymonit or labs Gastroesop hageal reflux disease without esophagitis 693693764 K21.9 Famotidine 20 mg dailymonit or for GI upset. Asthenia 05720359 R53.1 PT OT eval and treatfall precaution sfrequent safety checks Congestive heart failure 29866378 I50.9 3+edema -wear Teds stocking/t josee off at nightencou raged elevation of legs when OOBlasix 40 mg dailyPotas sium 10 nora ER dailymonit or weight, sob., edema History of ductal carcinoma in situ of breast 7034308618 9104 Z86.000 Anastrozol e Oral Tablet 1 MG Low grade B-cell lymphoma 467468025 C85.10 Normal immunofixa tion.CT chest done inhouse did not evaluate for lymphadeno kenrick.Chiquis ent reluctant to have more imaging.-F /u with [facility] hematology Laboratory test result abnormal 363684206 R89.9 Hx primary hyperparat hyroidism, lymphoprol iferative B-cell lymphomaRe pleted/res olved in acute care.Hypop hosphatemi a, Hypomagnes emia, Severe hypercalce bianca- received zoledronic acid,calci tonin in acute care.leuko cytosis-in acute care afebrile, Blood Cx : negative. U/A negative. No pneumonia on CXR.-likel y reactive stress Vs underlying lymphoprol iferative disease. 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 [id number] DANIEL HURLEY [address] [address] 06/05/2023 15:10:40 06/08/2023 08:39:26 Cellulitis of left lower limb 7593890798 5458744 L03.116 resolved Asthenia 98778464 R53.1 PT OT eval and treatfall precaution sfrequent safety checks Congestive heart failure 57291862 I50.9 trace to 1+ edema BLEcontinu e with noam wraps/leg elevatione ncouraged elevation of legs when OOBtorsemi de 20 mg dailyPotas sium 10 nora ER dailymonit or weight, sob., edema Hypokalemia 54999754 E87 .6 K+ 2.6 - order for 60 meq recheck K tomorrow Bacteriuria 86815516 R82 .71 with e.coliVSS, c/o generalize d discomfort levaquin 250 mg qd for 3 daysprobio tic bid for 5 days.encou raged fluids [id number] DANIEL HURLEY [address] [address] 06/12/2023 08:47:21 06/14/2023 13:58:42 Asthenia 43004121 R53.1 baseline fatigue since admission. PT OT eval and treatfall precaution sfrequent safety checks Congestive heart failure 86602417 I50.9 trace to 1+ edema BLEcontinu e with noam wraps/leg elevatione ncouraged elevation of legs when OOBtorsemi de 20 mg dailyPotas sium 10 nora ER dailymonit or weight, sob., edema Hypokalemia 20763755 E87 .6 K+ 2.6 - order for 60 meq recheck K tomorrowPo tassium increase from 10 to 20 meq daily K+ 3.2 Hyperparathyroidism 6699 9008 E21.2 calcium 13sensipar 90 mg daily- increased to BIDIVF NS at 75cc/hr for 500 cc ord.rechec k labs on 06/13/23add itional dose or torsemide 20mg ordered for tonight d/t chf hxfollow up/refer to Dr. Valderrama -followed by outpatient . [id number] DANIEL HURLEY [address] [place] [address] 06/13/2023 07:43:51 06/14/2023 19:45:48 Hyperparathyroidism 33773414 E21.2 calcium 13.4denies any associated sxsensipar 90 mg daily- increased to BIDreceive d IVF NS 500 cc on 06/12/23ref er to endocrinen jayceeing aware to update provider with any new sx.monitor labs repeat BMP on sunday. [id number] DANIEL HURLEY [address] [place] [address] 06/14/2023 09:26:07 06/18/2023 12:36:15 Lethargy 327948477 R53.83 see hpisend to ed for eval. [id number] Myriam Silverman [address] [place] [address] 06/15/2023 09:10:20 06/29/2023 03:52:24 Health Concerns Section Related Observation LastModified by Organization Detai ls LastModified Time None Recorded Concern Status LastModified by Organization Details LastModified Time None Recorded Advance Directives Directive Y: Payers Insurance Date Sequence Insurance Name Policy Number Policy Murphy Covered Member ID Murphy Member ID Guarantor Name 06/18/2023 2 [place] [employer] 111 Selin Austin [id number] Selin Austin 05/31/2023 1 [place] [employer] Selin Austin [id number] Selin Austin Notes Date Note Type Note Provider Name and Address Organization Details Recorded Time 06/05/2023 text/html ROS as noted in the [facility] Patient seen today for acute rounding visit. follow up for CHF, anxiety, abnormal labs. 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 Patient seen today for acute rounding visit follow up abnormal lab, CHF, asthenia Labs today with calcium at 13. Patient is asymptomatic with baseline fatigue. Past medical history of B-cell lymphoma, CHF, aortic stenosis, A-fib, MARVEL, Hyperparathyroidis anthony DE LA TORRE [facility] [address] [facility], [address], [place], [address], [facility] [employer] [facility] 06/12/2023 10:44:27 06/13/2023 text/html ROS as noted in the [facility] Patient seen today for acute rounding visit follow up abnormal lab, noted with calcium 13.4. Patient is asymptomatic, was treated on 06/12 with and her sensipar was increased from 90 mg qd to 90 mg BID. There is no associated sx observed. 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 Past medical history of B-cell lymphoma, CHF, aortic stenosis, A-fib, MARVEL, Hyperparathyroidis ozielDANIEL WELCH [address] [facility], [address], [place], [address], [facility] 06/13/2023 10:19:55 06/14/2023 text/html ROS as noted in the [facility] 83 yr old female patient seen today for acute care visit for altered mental status changes, baseline she is alert and verbal, on exam she is noted lethargic, slow to respond, breathing is easy, color is pale does not appears well. Nursing report increased weakness, poor appetite. She denies having pain or discomfort, appears very weak. Will send to ED for further evaluation. DANIEL HURLEY [address] [facility], [address], [place], [place], [address], [facility] 06/14/2023 09:39:03 OBGyn Episode No OBEpisode recorded.
--- OUTSIDE RECORDS SUMMARY | 2025-03-13 23:16 | XMS_ITS | Patient Health Record ---
Author Organization [facility] Address [address] [place] [address] Care Team Providers Care Juvenile Probation Officer Name Role Phone ANTHONY TO M.D. Primary Care Provider Sneha Balbuena Unavailable [phone] Reason For Referral No Information Medications Medication SIG (Take, Route, Frequency, Duration) Notes Start Date End Date Status Digoxin 125 MCG 1 tablet Orally Once a day Active Vitamin D3 1000 IU 1 ORAL daily; Duration: -3 [facility] 01/19/2014 Active Omeprazole 20MG 1 ORAL TWICE DAILY [facility] 12/07/2011 Active Sensipar 30 MG 1 tablet after a meal with food Orally Once a day Active predniSONE 5 MG/ML 1 ml Orally Twice a day Active Lasix 40 MG 1 Orally daily [facility] 01/19/2014 Active Iron Supplement 1 ORAL daily; Duration: -3 [facility] 01/19/2014 Active Meclizine HCl 12.5MG 1 ORAL NEEDED; Duration: -2 [facility] 01/19/2014 Not-Taking Lisinopril 2.5 MG 1 Orally daily [facility] 12/07/2011 Active Aspirin EC 81MG 1 ORAL daily; Duration: -3 [facility] 12/07/2011 Active Social History Tobacco Use: [...] Status Risk Notes Problem Postmenopausal atrophic vaginitis (64906494) Postmenopausal atrophic vaginitis (N95.2) Active confirmed Problem Cystocele (754527905) Cystocele, unspecified (N81.10) Active confirmed Problem Obesity (278690213) Obesity, unspecified (278.00) Active confirmed Diag Problem Benign essential hypertension (5198655) Essential hypertension, benign (401.1) Active confirmed Major Problem Esophageal reflux (918952811) Esophageal reflux (530.81) Active confirmed Major Problem Calculus of kidney (68483800) Calculus of kidney (592.0) Active confirmed Major Problem Menopausal symptom (70779856) Symptomatic menopausal or female climacteric states (627.2) Active confirmed Major Problem 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) Disorder of bone and cartilage, unspecified (733.90) Active confirmed Diag Problem Sleep apnea (09482115) Unspecified sleep apnea (780.57) Active confirmed Diag Problem Abdominal pain (finding) (07140436) Abdominal pain, unspecified site (789.00) Active confirmed Diag Problem Gynecological examination normal (560842108017318) Routine gynecological examination (V72.31) Active confirmed Major Problem Screening for malignant neoplasm of colon (528699294) Special screening for malignant neoplasms, colon (V76.51) Active confirmed Major Plan Of Treatment Pending Test Test Name Order Date MAMMOGRAM, SCREENING 05/11/2016 MM Digital Mammo Screening 05/11/2016 Insurance Providers Payer Name Payer Address Payer Phone Subscriber Number Group Number Insured Name Patient Relationship to Insured Coverage Start Date Coverage End Date MEDICARE [address] JANIE WOLFF [id number] [phone] [id number] PEDRO VASQUEZ Self - patient is the insured BCBS OF [facility] [address] [place] [address] [id number] PEDRO VASQUEZ Self - patient is the [...] Reason Date(Month/Year) 5 days Cardiac Unit @ [facility] 03/2016 child
--- OUTSIDE RECORDS SUMMARY | 2025-03-13 23:17 | XMS_ITS | Encounter Summary ---
Author Organization [facility] Address [address] [place] [address] Care Team Providers Care Neurodiagnostic Tech Name Role Phone Jewell Monaco MD Primary Care Provider Encounter Details Date Type Department Care Team (Late st Contact Info) Description 08/22/2024 Lab Requisition [facility] - Main Lab [address] [facility] [place] [address] Roberta Arreola MD [address] [address] Essential (primary) hypertension; Other abnormal glucose; Vitamin [...] Care Team (Late st Contact Info) Description 03/16/2025 3:10 PM EST Office Visit [facility] [address] [place] [phone] Gris Perez NP [address] [place] [address] [place] [phone] 04/24/2025 12:30 PM EST Ancillary Procedure [facility] Cardiology [facility] [address] [place] [address] 05/08/2025 1:10 PM EST Office Visit [facility] [place] [address] [place] [phone] Gris Perez NP [address] [place] [address] [address] [place] [phone] documented as of this encounter Procedures Procedure Name Priority Date/Time Associated Diagnosis Comments COMPLETE BLOOD COUNT Routine 08/25/2024 7:28 AM EDT Essential (primary) hypertension Other abnormal glucose Vitamin D deficiency, unspecified Respiratory failure, unspecified with hypoxia (CMS/HCC V24, CMS/HCC V28) Sepsis, unspecified organism (CMS/HCC V24, CMS/HCC V28) BASIC METABOLIC PANEL Routine 08/25/2024 7:28 AM EDT Essential (primary) hypertension Other abnormal glucose Vitamin D deficiency, unspecified Respiratory failure, unspecified with hypoxia (CMS/HCC V24, CMS/HCC V28) Sepsis, unspecified organism (CMS/HCC V24, CMS/HCC V28) documented in this encounter Results * (ABNORMAL) Basic metabolic panel (08/25/2024 7:28 AM EDT) Sodium 136 133 - 145 mmol/L LAB CHEMISTRY METHOD 08/25/2024 1:41 PM EDT [facility] Potassium 4.1 3.5 - 5.5 mmol/L LAB CHEMISTRY METHOD 08/25/2024 1:41 PM EDT [facility] Chloride 94(L) 96 - 110 mmol/L LAB CHEMISTRY METHOD 08/25/2024 1:41 PM T [facility] CO2 35(H) 21 - 32 mmol/L LAB CHEMISTRY METHOD 08/25/2024 1:41 PM T [facility] Anion Gap 7 3 - 11 LAB CHEMISTRY METHOD 08/25/2024 1:41 PM [facility] Glucose 91 70 - 100 mg/dL LAB CHEMISTRY METHOD 08/25/2024 1:41 PM [facility] BUN 33(H) 5 - 25 mg/dL LAB CHEMISTRY METHOD 08/25/2024 1:41 PM [facility] Creatinine 0.90 0.50 - 1.10 mg/dL LAB CHEMISTRY METHOD 08/25/2024 1:41 PM [facility] eGFR 63 >=60 mL/min/1. 73m2 LAB CHEMISTRY METHOD 08/25/2024 1:41 PM [facility] Comment:Calculation based on the Chronic Kidney Disease Epidemiology Collaboration (CKD-EPI) equation refit without adjustment for race. BUN/Creatinine Ratio 36.7 LAB CHEMISTRY METHOD 08/25/2024 1:41 PM [facility] Calcium 9.9 8.5 - 10.5 mg/dL LAB CHEMISTRY METHOD 08/25/2024 1:41 PM [facility] Blood Venous blood specimen / Unknown Venipuncture / Unknown 08/25/2024 7:28 AM EDT 08/25/2024 10:17 AM EDT us Roberta Arreola MD LAB BLOOD ORDERABLES Fin al Result [facility] [address] [place] [address], * (ABNORMAL) Complete blood count (08/25/2024 7:28 AM EDT) WBC 10.6 4.8 - 10.8 K/mcL LAB HEMETOLOGY METHOD 08/25/2024 11:30 AM EDT [facility] RBC 3.10(L) 3.80 - 4.80 M/mcL LAB HEMETOLOGY METHOD 08/25/2024 11:30 AM [facility] Hemoglobin 10.0(L) 11.5 - 16.0 g/dL LAB HEMETOLOGY METHOD 08/25/2024 11:30 AM [facility] Hematocrit 32.4(L) 35.0 - 47.0 % LAB HEMETOLOGY METHOD 08/25/2024 11:30 AM [facility] MCV 103.5(H) 79.0 - 98.0 FL LAB HEMETOLOGY METHOD 08/25/2024 11:30 AM [facility] MCH 31.9 27.0 - 32.0 pcg LAB HEMETOLOGY METHOD 08/25/2024 11:30 AM [facility] MCHC 30.9(L) 32.0 - 37.0 g/dL LAB HEMETOLOGY METHOD 08/25/2024 11:30 AM [facility] RDW 14.2 11.0 - 15.0 % LAB HEMETOLOGY METHOD 08/25/2024 11:30 AM [facility] Platelets 154 130 - 400 K/mcL LAB HEMETOLOGY METHOD 08/25/2024 11:30 AM [facility] MPV 11.4(H) 7.0 - 11.0 FL LAB HEMETOLOGY METHOD 08/25/2024 11:30 AM [facility] NRBC 0.0 <1.0 % LAB HEMETOLOGY METHOD 08/25/2024 11:30 AM [facility] NRBC Absolute 0.00 <0.10 K/mcL LAB HEMETOLOGY METHOD 08/25/2024 11:30 AM [facility] Blood Venous blood specimen / Unknown Venipuncture / Unknown 08/25/2024 7:28 AM EDT 08/25/2024 10:17 AM EDT us Roberta Arreola MD LAB BLOOD ORDERABLES Fin al [facility] [place] [facility] [address] [place] [address], documented in this encounter Visit Diagnoses Diagnosis Essential (primary) hypertension Unspecified essential hypertension Other abnormal glucose Vitamin D deficiency, unspecified Respiratory failure, unspecified with hypoxia (CMS/[facility] V24, CMS/[facility] V28) Sepsis, unspecified organism (CMS/HCC V24, CMS/[facility] V28) documented in this encounter Care Teams Neurodiagnostic Tech Relationship Specialty Start Date End Date Jewell Monaco MD [address] [place] [phone] PCP - General Internal Medicine 06/07/20 documented as of this encounter
--- OUTSIDE RECORDS SUMMARY | 2025-03-13 23:17 | XMS_ITS | Encounter Summary ---
Author Organization [facility] Address [address] [place] [address] Care Team Providers Care Electric Motor Repairer Name Role Phone Jewell Monaco MD Primary Care Provider Encounter Details Date Type Department Care Team (Late st Contact Info) Description 08/21/2024 Lab Requisition [facility] - Main Lab [address] [facility] [place] [address] Roberta Arreola MD [address] [address] Edema, unspecified Social History Tobacco Use Types Packs/Day Years [...] Encounters Date Type Department Care Team (Late Contact Info) Description 03/16/2025 3:10 PM EST Office Visit [facility] [address] [facility] [address] [place] [address] Gris Perez NP [address] [place] [place] [address] [address] [place] [phone] 04/24/2025 12:30 PM EST Ancillary Procedure [facility] [address] [place] [address] 05/08/2025 1:10 PM EST Office Visit [facility]iology [facility] [address] [place] [address] Gris Perez, LYUDMILA [address] [place] [place] [address] [address] [place] [phone] documented as of this encounter Procedures Procedure Name Priority Date/Time Associated Diagnosis Comments BASIC METABOLIC PANEL Routine 08/22/2024 6:37 AM EDT Edema, unspecified documented in this encounter Results * (ABNORMAL) Basic metabolic panel (08/22/2024 6:37 AM EDT) Sodium 141 133 - 145 mmol/L LAB CHEMISTRY METHOD 08/22/2024 11:49 AM [facility] Potassium 4.0 3.5 - 5.5 mmol/L LAB CHEMISTRY METHOD 08/22/2024 11:49 AM [facility] Chloride 96 96 - 110 mmol/L LAB CHEMISTRY METHOD 08/22/2024 11:49 AM [facility] CO2 43(HH) 21 - 32 mmol/L LAB CHEMISTRY METHOD 08/22/2024 11:49 AM [facility] Anion Gap 2(L) 3 - 11 LAB CHEMISTRY METHOD 08/22/2024 11:49 AM [facility] Glucose 84 70 - 100 mg/dL LAB CHEMISTRY METHOD 08/22/2024 11:49 AM [facility] BUN 26(H) 5 - 25 mg/dL LAB CHEMISTRY METHOD 08/22/2024 11:49 AM [facility] Creatinine 0.89 0.50 - 1.10 mg/dL LAB CHEMISTRY METHOD 08/22/2024 11:49 AM [facility] eGFR 64 >=60 mL/min/1. 73m2 LAB CHEMISTRY METHOD 08/22/2024 11:49 AM EDT [facility] Comment:Calculation based on the Chronic Kidney Disease Epidemiology Collaboration (CKD-EPI) equation refit without adjustment for race. BUN/Creatinine Ratio 29.2 LAB CHEMISTRY METHOD 08/22/2024 11:49 AM EDT [facility] Calcium 9.9 8.5 - 10.5 mg/dL LAB CHEMISTRY METHOD 08/22/2024 11:49 AM EDT [facility] Blood Venous blood specimen / Unknown Venipuncture / Unknown 08/22/2024 6:37 AM EDT 08/22/2024 8:13 AM EDT us Roberta Arreola MD LAB BLOOD ORDERABLES Fin al Result [facility] [address] [place] [address], documented in this encounter Visit Diagnoses Diagnosis Edema, unspecified documented in this encounter Care Teams Electric Motor Repairer Relationship Specialty Start Date End Date Jewell Monaco MD [address] [place] [phone] PCP - General Internal Medicine 06/07/20 documented as of this encounter
--- OUTSIDE RECORDS SUMMARY | 2025-03-13 23:18 | XMS_ITS | Encounter Summary ---
Author Organization [facility] Address [address] [place] [address] Care Team Providers Care Speech Communication Professor Name Role Phone Jewell Monaco MD Primary Care Provider Encounter Details Date Type Department Care Team (Late st Contact Info) Description 08/12/2024 Lab Requisition [facility] - Main Lab [address] [facility] [place] [address] Roberta Arreola MD [address] [address] Essential (primary) hypertension; Sepsis, unspecified organism (CMS/HCC V24, CMS/HCC V28); Vitamin D deficiency, unspecified; Respiratory failure, unspecified with hypoxia (CMS/HCC V24, CMS/HCC V28); Other abnormal glucose Social History Tobacco Use Types Packs/Day Years [...] Description 03/16/2025 3:10 PM EST Office Visit [facility] [address] [place] [phone] Gris Perez NP [address] [place] [address] Dr [address] [place] [phone] 04/24/2025 12:30 PM EST Ancillary Procedure [facility] Cardiology [facility] [address] [place] [address] 05/08/2025 1:10 PM EST Office Visit [facility] [address] [place] [phone] Gris Perez NP [address] [place] [address] Dr Goode [address] [place] [phone] documented as of this encounter Procedures Procedure Name Priority Date/Time Associated Diagnosis Comments VITAMIN D 25 HYDROXY Routine 08/12/2024 6:25 AM EDT Essential (primary) hypertension Sepsis, unspecified organism (CMS/HCC V24, CMS/HCC V28) Vitamin D deficiency, unspecified Respiratory failure, unspecified with hypoxia (CMS/HCC V24, CMS/HCC V28) Other abnormal glucose COMPLETE BLOOD COUNT Routine 08/12/2024 6:25 AM EDT Essential (primary) hypertension Sepsis, unspecified organism (CMS/HCC V24, CMS/HCC V28) Vitamin D deficiency, unspecified Respiratory failure, unspecified with hypoxia (CMS/HCC V24, CMS/HCC V28) Other abnormal glucose MAGNESIUM Routine 08/12/2024 6:25 AM EDT Essential (primary) hypertension Sepsis, unspecified organism (CMS/HCC V24, CMS/HCC V28) Vitamin D deficiency, unspecified Respiratory failure, unspecified with hypoxia (CMS/HCC V24, CMS/HCC V28) Other abnormal glucose HEMOGLOBIN A1C Routine 08/12/2024 6:25 AM EDT Essential (primary) hypertension Sepsis, unspecified organism (CMS/HCC V24, CMS/HCC V28) Vitamin D deficiency, unspecified Respiratory failure, unspecified with hypoxia (CMS/HCC V24, CMS/HCC V28) Other abnormal glucose FOLATE Routine 08/12/2024 6:25 AM EDT Essential (primary) hypertension Sepsis, unspecified organism (CMS/HCC V24, CMS/HCC V28) Vitamin D deficiency, unspecified Respiratory failure, unspecified with hypoxia (CMS/HCC V24, CMS/HCC V28) Other abnormal glucose VITAMIN B12 Routine 08/12/2024 6:25 AM EDT Essential (primary) hypertension Sepsis, unspecified organism (CMS/HCC V24, CMS/HCC V28) Vitamin D deficiency, unspecified Respiratory failure, unspecified with hypoxia (CMS/HCC V24, CMS/HCC V28) Other abnormal glucose COMPREHENSIVE METABOLIC PANEL Routine 08/12/2024 6:25 AM EDT Essential (primary) hypertension Sepsis, unspecified organism (CMS/HCC V24, CMS/HCC V28) Vitamin D deficiency, unspecified Respiratory failure, unspecified with hypoxia (CMS/[facility] V24, CMS/[facility] V28) Other abnormal glucose documented in this encounter Results * Hemoglobin A1c (08/12/2024 6:25 AM EDT) Pathologist [facility] Hemoglobin A1C 5.4 <6.5 % LAB CHEMISTRY METHOD 08/12/2024 2:05 PM EDT [facility] Mean Bld Glu Estim. 108 mg/dL LAB CHEMISTRY METHOD 08/12/2024 2:05 PM EDT [facility] Blood Venous blood specimen / Unknown Venipuncture / Unknown 08/12/2024 6:25 AM EDT 08/12/2024 9:54 AM EDT us Roberta Arreola MD LAB BLOOD ORDERABLES Fin al Result [facility]) [facility] [address] [place] [address], * (ABNORMAL) Vitamin D 25 hydroxy (08/12/2024 6:25 AM EDT) Vit D, 25-Hydroxy 22.6(L) 30.0 - 80.0 ng/mL LAB CHEMISTRY METHOD 08/12/2024 11:57 AM EDT [facility] Blood Venous blood specimen / Unknown Venipuncture / Unknown 08/12/2024 6:25 AM EDT 08/12/2024 9:54 AM EDT Roberta Arreloa MD LAB BLOOD ORDERABLES Fin al Result Performing Organization Address [facility] de Phone Number [facility] [address] [place] [address], [place] [phone] * (ABNORMAL) Vitamin B12 (08/12/2024 6:25 AM EDT) [facility] Vitamin B-12 920(H) 250 - 900 pcg/mL LAB CHEMISTRY METHOD 08/12/2024 11:09 AM EDT [facility] Blood Venous blood specimen / Unknown Venipuncture / Unknown 08/12/2024 6:25 AM EDT 08/12/2024 9:54 AM EDT Roberta Arreola MD LAB BLOOD ORDERABLES Fin al Result Performing Organization Address [facility] de Phone Number [facility] [address] [place] [address], [place] [phone] * Folate (08/12/2024 6:25 AM EDT) [facility] Folate 6.1 2.8 - 17.0 ng/ml LAB CHEMISTRY METHOD 08/12/2024 10:58 AM EDT [facility] Blood Venous blood specimen / Unknown Venipuncture / Unknown 08/12/2024 6:25 AM EDT 08/12/2024 9:54 AM EDT Roberta Arreola MD LAB BLOOD ORDERABLES Fin al Result Performing Organization Address City/[facility] de Phone Number [facility] [address] [place] [address], [place] [phone] * (ABNORMAL) Magnesium (08/12/2024 6:25 AM EDT) [facility] Magnesium 1.7(L) 1.9 - 2.6 mg/dL LAB CHEMISTRY METHOD 08/12/2024 10:46 AM EDT [facility] Blood Venous blood specimen / Unknown Venipuncture / Unknown 08/12/2024 6:25 AM EDT 08/12/2024 9:54 AM EDT Roberta Arreola MD LAB BLOOD ORDERABLES Fin al Result Performing Organization Address [facility]/State/ZIP Co de Phone Number [facility] [address] [place] [address], * (ABNORMAL) Comprehensive metabolic panel (08/12/2024 6:25 AM EDT) [facility] Sodium 141 133 - 145 mmol/L LAB CHEMISTRY METHOD 08/12/2024 11:02 AM [facility] Potassium 4.0 3.5 - 5.5 mmol/L LAB CHEMISTRY METHOD 08/12/2024 11:02 AM [facility] Chloride 98 96 - 110 mmol/L LAB CHEMISTRY METHOD 08/12/2024 11:02 AM [facility] CO2 43(HH) 21 - 32 mmol/L LAB CHEMISTRY METHOD 08/12/2024 11:02 AM [facility] Anion Gap 0(L) 3 - 11 LAB CHEMISTRY METHOD 08/12/2024 11:02 AM [facility] Glucose 76 70 - 100 mg/dL LAB CHEMISTRY METHOD 08/12/2024 11:02 AM [facility] BUN 23 5 - 25 mg/dL LAB CHEMISTRY METHOD 08/12/2024 11:[facility] Creatinine 0.59 0.50 - 1.10 mg/dL LAB CHEMISTRY METHOD 08/12/2024 11:02 AM [facility] eGFR 89 >=60 mL/min/1. 73m2 LAB CHEMISTRY METHOD 08/12/2024 11:02 AM [facility] Comment:Calculation based on the Chronic Kidney Disease Epidemiology Collaboration (CKD-EPI) equation refit without adjustment for race. BUN/Creatinine Ratio 39.0 LAB CHEMISTRY METHOD 08/12/2024 11:02 AM [facility] Calcium 10.2 8.5 - 10.5 mg/dL LAB CHEMISTRY METHOD 08/12/2024 11:02 AM [facility] AST (SGOT) 18 10 - 42 unit/L LAB CHEMISTRY METHOD 08/12/2024 11:02 AM [facility] ALT (SGPT) 77(H) 10 - 60 unit/L LAB CHEMISTRY METHOD 08/12/2024 11:02 AM [facility] Alkaline Phosphatase 52 42 - 121 unit/L LAB CHEMISTRY METHOD 08/12/2024 11:02 AM [facility] Total Protein 6.0 6.0 - 8.0 g/dL LAB CHEMISTRY METHOD 08/12/2024 11:02 AM [facility] Albumin 2.6(L) 3.2 - 5.0 g/dL LAB CHEMISTRY METHOD 08/12/2024 11:02 AM [facility] Total Bilirubin 0.5 0.0 - 1.4 mg/dL LAB CHEMISTRY METHOD 08/12/2024 11:02 AM [facility] Blood Venous blood specimen / Unknown Venipuncture / Unknown 08/12/2024 6:25 AM EDT 08/12/2024 9:54 AM EDT us Roberta Arreola MD LAB BLOOD ORDERABLES Fin al Result [facility] [address] [place] [address], * (ABNORMAL) Complete blood count (08/12/2024 6:25 AM EDT) [facility] Signature WBC 13.3(H) 4.8 - 10.8 K/mcL LAB HEMETOLOGY METHOD 08/12/2024 10:18 AM EDT [facility] RBC 3.20(L) 3.80 - 4.80 M/mcL LAB HEMETOLOGY METHOD 08/12/2024 10:18 AM EDT [facility] Hemoglobin 10.4(L) 11.5 - 16.0 g/dL LAB HEMETOLOGY METHOD 08/12/2024 10:18 AM EDT [facility] Hematocrit 34.1(L) 35.0 - 47.0 % LAB HEMETOLOGY METHOD 08/12/2024 10:18 AM EDT [facility] MCV 105.6(H) 79.0 - 98.0 FL LAB HEMETOLOGY METHOD 08/12/2024 10:18 AM EDT [facility] MCH 32.2(H) 27.0 - 32.0 pcg LAB HEMETOLOGY METHOD 08/12/2024 10:18 AM EDT [facility] MCHC 30.5(L) 32.0 - 37.0 g/dL LAB HEMETOLOGY METHOD 08/12/2024 10:18 AM EDT [facility] RDW 14.0 11.0 - 15.0 % LAB HEMETOLOGY METHOD 08/12/2024 10:18 AM EDT [facility] Platelets 134 130 - 400 K/mcL LAB HEMETOLOGY METHOD 08/12/2024 10:18 AM EDT [facility] MPV 13.0(H) 7.0 - 11.0 FL LAB HEMETOLOGY METHOD 08/12/2024 10:18 AM EDT [facility] NRBC 0.0 <1.0 % LAB HEMETOLOGY METHOD 08/12/2024 10:18 AM EDT [facility] NRBC Absolute 0.00 <0.10 K/mcL LAB HEMETOLOGY METHOD 08/12/2024 10:18 AM EDT [facility] Blood Venous blood specimen / Unknown Venipuncture / Unknown 08/12/2024 6:25 AM EDT 08/12/2024 9:54 AM EDT us Roberta Arreola MD LAB BLOOD ORDERABLES Fin al Result [facility] [address] [place] [address], documented in this encounter Visit Diagnoses Diagnosis Essential (primary) hypertension Unspecified essential hypertension Sepsis, unspecified organism (CMS/HCC V24, [facility] V28) Vitamin D deficiency, unspecified Respiratory failure, unspecified with hypoxia (CMS/HCC V24, [facility] V28) Other abnormal glucose documented in this encounter Care Teams Speech Communication Professor Relationship Specialty Start Date End Date Jewell Monaco MD [address] [place] [phone] PCP - General Internal Medicine 06/07/20 documented as of this encounter
--- OUTSIDE RECORDS SUMMARY | 2025-03-13 23:18 | XMS_ITS | Encounter Summary ---
Author Organization [facility] Address [address] [place] [address] Care Team Providers Care Recordist Chief Name Role Phone Jewell Monaco MD Primary Care Provider Encounter Details Date Type Department Care Team (Late st Contact Info) Description 08/16/2024 Lab Requisition [facility] - Main Lab 299 [facility] [place] [address] Roberta Arreola MD [address] [address] Essential (primary) hypertension; Other abnormal glucose; Vitamin [...] Description 03/16/2025 3:10 PM EST Office Visit [facility] [address] [place] [phone] Gris Perez NP [address] [place] [address] [place] [address] 04/24/2025 12:30 PM EST Ancillary Procedure [facility] Cardiology [facility] [address] [place] [address] 05/08/2025 1:10 PM EST Office Visit [facility] [place] [address] [place] [address] [place] [phone] Gris Perez NP [address] [place] [address] Dr [address] [place] [phone] documented as of this encounter Procedures Procedure Name Priority Date/Time Associated Diagnosis Comments COMPLETE BLOOD COUNT Routine 08/18/2024 7:45 AM EDT Essential (primary) hypertension Other abnormal glucose Vitamin D deficiency, unspecified Respiratory failure, unspecified with hypoxia (CMS/HCC V24, CMS/HCC V28) Sepsis, unspecified organism (CMS/HCC V24, CMS/HCC V28) BASIC METABOLIC PANEL Routine 08/18/2024 7:45 AM EDT Essential (primary) hypertension Other abnormal glucose Vitamin D deficiency, unspecified Respiratory failure, unspecified with hypoxia (CMS/HCC V24, CMS/HCC V28) Sepsis, unspecified organism (CMS/HCC V24, CMS/HCC V28) documented in this encounter Results * (ABNORMAL) Basic metabolic panel (08/18/2024 7:45 AM EDT) Sodium 141 133 - 145 mmol/L LAB CHEMISTRY METHOD 08/18/2024 3:02 PM [facility] Potassium 3.8 3.5 - 5.5 mmol/L LAB CHEMISTRY METHOD 08/18/2024 3:02 PM [facility] Chloride 95(L) 96 - 110 mmol/L LAB CHEMISTRY METHOD 08/18/2024 3:02 PM [facility] CO2 41(HH) 21 - 32 mmol/L LAB CHEMISTRY METHOD 08/18/2024 3:02 PM [facility] Anion Gap 5 3 - 11 LAB CHEMISTRY METHOD 08/18/2024 3:02 PM [facility] Glucose 79 70 - 100 mg/dL LAB CHEMISTRY METHOD 08/18/2024 3:02 PM [facility] BUN 26(H) 5 - 25 mg/dL LAB CHEMISTRY METHOD 08/18/2024 3:02 PM [facility] Creatinine 0.79 0.50 - 1.10 mg/dL LAB CHEMISTRY METHOD 08/18/2024 3:02 PM [facility] eGFR 74 >=60 mL/min/1. 73m2 LAB CHEMISTRY METHOD 08/18/2024 3:02 PM [facility] Comment:Calculation based on the Chronic Kidney Disease Epidemiology Collaboration (CKD-EPI) equation refit without adjustment for race. BUN/Creatinine Ratio 32.9 LAB CHEMISTRY METHOD 08/18/2024 3:02 PM [facility] Calcium 10.7(H) 8.5 - 10.5 mg/dL LAB CHEMISTRY METHOD 08/18/2024 3:02 PM [facility] Blood Venous blood specimen / Unknown Venipuncture / Unknown 08/18/2024 7:45 AM EDT 08/18/2024 11:14 AM EDT us Roberta Arreola MD LAB BLOOD ORDERABLES Fin al Result [facility] [address] [place] [address], * (ABNORMAL) Complete blood count (08/18/2024 7:45 AM EDT) WBC 9.5 4.8 - 10.8 K/mcL LAB HEMETOLOGY METHOD 08/18/2024 12:43 PM [facility] RBC 3.10(L) 3.80 - 4.80 M/mcL LAB HEMETOLOGY METHOD 08/18/2024 12:43 PM [facility] Hemoglobin 10.1(L) 11.5 - 16.0 g/dL LAB HEMETOLOGY METHOD 08/18/2024 12:43 PM [facility] Hematocrit 32.8(L) 35.0 - 47.0 % LAB HEMETOLOGY METHOD 08/18/2024 12:43 PM [facility] MCV 104.5(H) 79.0 - 98.0 FL LAB HEMETOLOGY METHOD 08/18/2024 12:43 PM [facility] MCH 32.2(H) 27.0 - 32.0 pcg LAB HEMETOLOGY METHOD 08/18/2024 12:43 PM [facility] MCHC 30.8(L) 32.0 - 37.0 g/dL LAB HEMETOLOGY METHOD 08/18/2024 12:43 PM [facility] RDW 13.9 11.0 - 15.0 % LAB HEMETOLOGY METHOD 08/18/2024 12:43 PM [facility] Platelets 150 130 - 400 K/mcL LAB HEMETOLOGY METHOD 08/18/2024 12:43 PM [facility] MPV 11.1(H) 7.0 - 11.0 FL LAB HEMETOLOGY METHOD 08/18/2024 12:43 PM [facility] NRBC 0.0 <1.0 % LAB HEMETOLOGY METHOD 08/18/2024 12:43 PM [facility] NRBC Absolute 0.00 <0.10 K/mcL LAB HEMETOLOGY METHOD 08/18/2024 12:43 PM [facility] Blood Venous blood specimen / Unknown Venipuncture / Unknown 08/18/2024 7:45 AM EDT 08/18/2024 11:14 AM EDT us Roberta Arreola MD LAB BLOOD ORDERABLES Fin al [facility] [address] [place] [address], documented in this encounter Visit Diagnoses Diagnosis Essential (primary) hypertension Unspecified essential hypertension Other abnormal glucose Vitamin D deficiency, unspecified Respiratory failure, unspecified with hypoxia (CMS/HCC V24, CMS/HCC V28) Sepsis, unspecified organism (CMS/HCC V24, CMS/HCC V28) documented in this encounter Care Teams Recordist Chief Relationship Specialty Start Date End Date Jewell Monaco MD [address] [place] [phone] PCP - General Internal Medicine 06/07/20 documented as of this encounter
--- OUTSIDE RECORDS SUMMARY | 2025-03-13 23:19 | XMS_ITS | Encounter Summary ---
Author Organization [facility] Address [address] [place] [address] Care Team Providers Care Safety Deposit Clerk Name Role Phone Jewell Monaco MD Primary Care Provider Encounter Details Date Type Department Care Team (Late st Contact Info) Description 09/02/2024 Lab Requisition [facility] - Main Lab 299 [facility] [place] [address] Roberta Arreola MD [address] [address] Pneumonia, unspecified organism; Acute and chronic respiratory failure with hypoxia (CMS/HCC V24, CMS/HCC V28); Pulmonary hypertension, unspecified (CMS/HCC V24, CMS/HCC V28) Social History Tobacco [...] Description 03/16/2025 3:10 PM EST Office Visit [facility] - [facility] [address] [place] [address] [place] [address] Gris Perez NP [address] [place] [address] Dr [address] [place] [address] 04/24/2025 12:30 PM EST Ancillary Procedure [facility] Cardiology [facility] [address] [place] [address] 05/08/2025 1:10 PM EST Office Visit [facility] [address] [place] [phone] Gris Perez, LYUDMILA [address] [place] [address] [address] [place] [address] documented as of this encounter Procedures Procedure Name Priority Date/Time Associated Diagnosis Comments COMPLETE BLOOD COUNT Routine 09/02/2024 8:03 AM EDT Pneumonia, unspecified organism Acute and chronic respiratory failure with hypoxia (CMS/HCC V24, CMS/HCC V28) Pulmonary hypertension, unspecified (CMS/HCC V24, CMS/HCC V28) BASIC METABOLIC PANEL Routine 09/02/2024 8:03 AM EDT Pneumonia, unspecified organism Acute and chronic respiratory failure with hypoxia (CMS/HCC V24, CMS/HCC V28) Pulmonary hypertension, unspecified (CMS/HCC V24, CMS/HCC V28) documented in this encounter Results * (ABNORMAL) Basic metabolic panel (09/02/2024 8:03 AM EDT) Sodium 142 133 - 145 mmol/L LAB CHEMISTRY METHOD 09/02/2024 11:49 AM T [facility] Potassium 3.6 3.5 - 5.5 mmol/L LAB CHEMISTRY METHOD 09/02/2024 11:49 AM [facility] Chloride 98 96 - 110 mmol/L LAB CHEMISTRY METHOD 09/02/2024 11:49 AM [facility] CO2 39(H) 21 - 32 mmol/L LAB CHEMISTRY METHOD 09/02/2024 11:49 AM [facility] Anion Gap 5 3 - 11 LAB CHEMISTRY METHOD 09/02/2024 11:49 AM T [facility] Glucose 82 70 - 100 mg/dL LAB CHEMISTRY METHOD 09/02/2024 11:49 AM [facility] BUN 24 5 - 25 mg/dL LAB CHEMISTRY METHOD 09/02/2024 11:49 AM [facility] Creatinine 0.82 0.50 - 1.10 mg/dL LAB CHEMISTRY METHOD 09/02/2024 11:49 AM [facility] eGFR 71 >=60 mL/min/1. 73m2 LAB CHEMISTRY METHOD 09/02/2024 11:49 AM [facility] Comment:Calculation based on the Chronic Kidney Disease Epidemiology Collaboration (CKD-EPI) equation refit without adjustment for race. BUN/Creatinine Ratio 29.3 LAB CHEMISTRY METHOD 09/02/2024 11:49 AM [facility] Calcium 9.7 8.5 - 10.5 mg/dL LAB CHEMISTRY METHOD 09/02/2024 11:49 AM [facility] Blood Venous blood specimen / Unknown Venipuncture / Unknown 09/02/2024 8:03 AM EDT 09/02/2024 10:14 AM EDT us Roberta Arreola MD LAB BLOOD ORDERABLES Fin al Result [facility] [address] [place] [address], * (ABNORMAL) Complete blood count (09/02/2024 8:03 AM EDT) WBC 12.0(H) 4.8 - 10.8 K/[facility] LAB HEMETOLOGY METHOD 09/02/2024 10:59 AM EDT [facility] RBC 3.00(L) 3.80 - 4.80 M/[facility] LAB HEMETOLOGY METHOD 09/02/2024 10:59 AM [facility] Hemoglobin 9.7(L) 11.5 - 16.0 g/dL LAB HEMETOLOGY METHOD 09/02/2024 10:59 AM [facility] Hematocrit 31.4(L) 35.0 - 47.0 % LAB HEMETOLOGY METHOD 09/02/2024 10:59 AM [facility] MCV 104.0(H) 79.0 - 98.0 FL LAB HEMETOLOGY METHOD 09/02/2024 10:59 AM [facility] MCH 32.1(H) 27.0 - 32.0 pcg LAB HEMETOLOGY METHOD 09/02/2024 10:59 AM [facility] MCHC 30.9(L) 32.0 - 37.0 g/dL LAB HEMETOLOGY METHOD 09/02/2024 10:59 AM [facility] RDW 14.3 11.0 - 15.0 % LAB HEMETOLOGY METHOD 09/02/2024 10:59 AM [facility] Platelets 132 130 - 400 K/mcL LAB HEMETOLOGY METHOD 09/02/2024 10:59 AM [facility] MPV 11.5(H) 7.0 - 11.0 FL LAB HEMETOLOGY METHOD 09/02/2024 10:59 AM [facility] NRBC 0.0 <1.0 % LAB HEMETOLOGY METHOD 09/02/2024 10:59 AM [facility] NRBC Absolute 0.00 <0.10 K/mcL LAB HEMETOLOGY METHOD 09/02/2024 10:59 AM [facility] Blood Venous blood specimen / Unknown Venipuncture / Unknown 09/02/2024 8:03 AM EDT 09/02/2024 10:14 AM EDT us Roberta Arreola MD LAB BLOOD ORDERABLES Fin al Result [facility] [address] [place] [address], documented in this encounter Visit Diagnoses Diagnosis Pneumonia, unspecified organism Acute and chronic respiratory failure with hypoxia (CMS/[facility] V24, [facility] V28) Pulmonary hypertension, unspecified ([facility] V24, [facility] V28) documented in this encounter Care Teams Safety Deposit Clerk Relationship Specialty Start Date End Date Jewell Monaco MD [address] [place] [address] PCP - General Internal Medicine 06/07/20 documented as of this encounter
--- OUTSIDE RECORDS SUMMARY | 2025-03-13 23:20 | XMS_ITS | Encounter Summary ---
Author Organization [facility] Address [address] [place] [address] Care Team Providers Care Bicycle Repairman Name Role Phone Jewell Monaco MD Primary Care Provider Encounter Details Date Type Department Care Team (Late st Contact Info) Description 08/28/2024 Lab Requisition [facility] - Main Lab [address] [facility] [place] [address] Roberta Arreola MD [address] [address] Heart failure, unspecified (CMS/HCC V24, CMS/HCC V28) Social History [...] Description 03/16/2025 3:10 PM EST Office Visit [facility] - Medical [place] [address] [place] [address] Gris Perez NP [address] [place] [address] [address] [place] [phone] 04/24/2025 12:30 PM EST Ancillary Procedure [facility] Cardiology [facility] [address] [place] [address] 05/08/2025 1:10 PM EST Office Visit [facility] Cardiology [facility] [address] [place] [address] Gris Perez, LYUDMILA [address] [place] [address] [place] [address] documented as of this encounter Procedures Procedure Name Priority Date/Time Associated Diagnosis Comments BASIC METABOLIC PANEL Routine 08/28/2024 8:08 AM EDT Heart failure, unspecified (CMS/HCC V24, CMS/HCC V28) documented in this encounter Results * (ABNORMAL) Basic metabolic panel (08/28/2024 8:08 AM EDT) Sodium 144 133 - 145 mmol/L LAB CHEMISTRY METHOD 08/28/2024 11:38 AM [facility] Potassium 4.0 3.5 - 5.5 mmol/L LAB CHEMISTRY METHOD 08/28/2024 11:38 AM [facility] Chloride 100 96 - 110 mmol/L LAB CHEMISTRY METHOD 08/28/2024 11:38 AM [facility] CO2 40(H) 21 - 32 mmol/L LAB CHEMISTRY METHOD 08/28/2024 11:38 AM [facility] Anion Gap 4 3 - 11 LAB CHEMISTRY METHOD 08/28/2024 11:38 AM [facility] Glucose 85 70 - 100 mg/dL LAB CHEMISTRY METHOD 08/28/2024 11:38 AM [facility] BUN 36(H) 5 - 25 mg/dL LAB CHEMISTRY METHOD 08/28/2024 11:38 AM [facility] Creatinine 1.05 0.50 - 1.10 mg/dL LAB CHEMISTRY METHOD 08/28/2024 11:38 AM EDT [facility] eGFR 53(L) >=60 mL/min/1. 73m2 LAB CHEMISTRY METHOD 08/28/2024 11:38 AM EDT [facility] Comment:Calculation based on the Chronic Kidney Disease Epidemiology Collaboration (CKD-EPI) equation refit without adjustment for race. BUN/Creatinine Ratio 34.3 LAB CHEMISTRY METHOD 08/28/2024 11:38 AM EDT [facility] Calcium 9.9 8.5 - 10.5 mg/dL LAB CHEMISTRY METHOD 08/28/2024 11:38 AM EDT [facility] Blood Venous blood specimen / Unknown Venipuncture / Unknown 08/28/2024 8:08 AM EDT 08/28/2024 10:01 AM EDT us Roberta Arreola MD LAB BLOOD ORDERABLES Fin al Result [facility] [address] [place] [address], documented in this encounter Visit Diagnoses Diagnosis Heart failure, unspecified (CMS/HCC V24, CMS/HCC V28) Heart failure, unspecified documented in this encounter Care Teams Bicycle Repairman Relationship Specialty Start Date End Date Jewell Monaco MD [address] [place] [phone] PCP - General Internal Medicine 06/07/20 documented as of this encounter
--- OUTSIDE RECORDS SUMMARY | 2025-03-13 23:20 | XMS_ITS | Encounter Summary ---
Author Organization [facility] Address [address] [place] [address] Care Team Providers Care Contract Paralegal Name Role Phone Jewell Monaco MD Primary Care Provider Encounter Details Date Type Department Care Team (Late st Contact Info) Description 08/30/2024 Lab Requisition [facility] - Main Lab [address] [facility] [place] [address] Roberta Arreola MD [address] [address] Essential (primary) hypertension; Other abnormal glucose; Vitamin [...] Description 03/16/2025 3:10 PM EST Office Visit [facility] [address] [place] [phone] Gris Perez NP [address] [place] [address] [place] [phone] 04/24/2025 12:30 PM EST Ancillary Procedure [facility] Cardiology [facility] [address] [place] [address] 05/08/2025 1:10 PM EST Office Visit [facility] - Medical [place] [address] [place] [phone] Gris Perez NP [address] [place] [address] [address] [place] [phone] documented as of this encounter Procedures Procedure [...] mmol/L LAB CHEMISTRY METHOD 09/01/2024 1:08 PM [facility] Potassium 3.5 3.5 - 5.5 mmol/L LAB CHEMISTRY METHOD 09/01/2024 1:08 PM [facility] Chloride 94(L) 96 - 110 mmol/L LAB CHEMISTRY METHOD 09/01/2024 1:08 PM [facility] CO2 39(H) 21 - 32 mmol/L LAB CHEMISTRY METHOD 09/01/2024 1:08 PM [facility] Anion Gap 4 3 - 11 LAB CHEMISTRY METHOD 09/01/2024 1:08 PM [facility] Glucose 121(H) 70 - 100 mg/dL LAB CHEMISTRY METHOD 09/01/2024 1:08 PM [facility] BUN 29(H) 5 - 25 mg/dL LAB CHEMISTRY METHOD 09/01/2024 1:08 PM [facility] Creatinine 0.97 0.50 - 1.10 mg/dL LAB CHEMISTRY METHOD 09/01/2024 1:08 PM [facility] eGFR 58(L) >=60 mL/min/1. 73m2 LAB CHEMISTRY METHOD 09/01/2024 1:08 PM [facility] Comment:Calculation based on the Chronic Kidney Disease Epidemiology Collaboration (CKD-EPI) equation refit without adjustment for race. BUN/Creatinine Ratio 29.9 LAB CHEMISTRY METHOD 09/01/2024 1:08 PM [facility] Calcium 10.2 8.5 - 10.5 mg/dL LAB CHEMISTRY METHOD 09/01/2024 1:08 PM [facility] Blood Venous blood specimen / Unknown Venipuncture / Unknown 09/01/2024 10:19 AM EDT 09/01/2024 11:21 AM EDT us Roberta Arreola MD LAB BLOOD ORDERABLES Fin al Result [facility] [address] [place] [address], * (ABNORMAL) Complete blood count (09/01/2024 10:19 AM EDT) WBC 10.1 4.8 - 10.8 K/mcL LAB HEMETOLOGY METHOD 09/01/2024 12:[facility] RBC 3.10(L) 3.80 - 4.80 M/mcL LAB HEMETOLOGY METHOD 09/01/2024 12:46 PM [facility] Hemoglobin 9.9(L) 11.5 - 16.0 g/dL LAB HEMETOLOGY METHOD 09/01/2024 12:46 PM [facility] Hematocrit 31.8(L) 35.0 - 47.0 % LAB HEMETOLOGY METHOD 09/01/2024 12:46 PM [facility] MCV 103.2(H) 79.0 - 98.0 FL LAB HEMETOLOGY METHOD 09/01/2024 12:46 PM [facility] MCH 32.1(H) 27.0 - 32.0 pcg LAB HEMETOLOGY METHOD 09/01/2024 12:46 PM [facility] MCHC 31.1(L) 32.0 - 37.0 g/dL LAB HEMETOLOGY METHOD 09/01/2024 12:46 PM [facility] RDW 14.2 11.0 - 15.0 % LAB HEMETOLOGY METHOD 09/01/2024 12:46 PM [facility] Platelets 154 130 - 400 K/mcL LAB HEMETOLOGY METHOD 09/01/2024 12:46 PM [facility] MPV 11.3(H) 7.0 - 11.0 FL LAB HEMETOLOGY METHOD 09/01/2024 12:46 PM [facility] NRBC 0.0 <1.0 % LAB HEMETOLOGY METHOD 09/01/2024 12:46 PM [facility] NRBC Absolute 0.00 <0.10 K/mcL LAB HEMETOLOGY METHOD 09/01/2024 12:46 PM [facility] Blood Venous blood specimen / Unknown Venipuncture / Unknown 09/01/2024 10:19 AM EDT 09/01/2024 11:21 AM EDT us Roberta Arreola MD LAB BLOOD ORDERABLES Fin al Result [facility] [address] [place] [address], documented in this encounter Visit Diagnoses Diagnosis Essential (primary) hypertension Unspecified essential hypertension Other abnormal glucose Vitamin D deficiency, unspecified Respiratory failure, unspecified with hypoxia (CMS/[facility] V24, CMS/[facility] V28) Sepsis, unspecified organism (CMS/HCC V24, CMS/[facility] V28) documented in this encounter Care Teams Contract Paralegal Relationship Specialty Start Date End Date Jewell Monaco MD [address] [place] [phone] PCP - General Internal Medicine 06/07/20 documented as of this encounter
--- OUTSIDE RECORDS SUMMARY | 2025-03-13 23:21 | XMS_ITS | Clinical Summary ---
Author Organization [facility] Address [address] [address] Phone Care Team Providers Care Clinical Operations Consultant Name Role Phone Jewell Monaco MD Primary [...] mouth 1 (one) time each day Active Cholecalciferol (Vitamin D3) 50 MCG (2000 UT) tabletIndications:Vitam in D deficiency, not otherwise specified Take 2,000 Units by mouth 1 (one) time each day 30 tablet 11 03/16/20 24 025 Active metOLazone 2.5 MG tablet Take 2.5 mg by mouth 1 (one) time per week 08/29/19 24 Active cinacalcet (SENSIPAR) 90 MG tabletIndications:Prima ry hyperparathyroidism (HCC) Take 1 tablet (90 mg total) by mouth in the morning and 1 tablet (90 mg total) in the evening. 180 tablet 3 01/09/20 25 026 Active Active Problems Problem Noted Date Diagnosed Date Chronic kidney disease, stage 2 (mild) 4 Serum creatinine above reference range 4 Assessment & Plan (08/29/2023 8:04 PM EDT): [...] on . Shortness of breath 09/14/2020 01/10/20 Overview (10/25/2020): Last Assessment & Plan: The [...] Encounters Date Type Department Care Team Description 01/08/2025 3:00 PM EDT Office Visit [facility] [address] [address] Kesha Dempsey ARNP Chronic kidney disease, stage 2 (mild) (Primary Dx); Primary hyperparathyroidism (HCC); Vitamin D deficiency, not otherwise specified; Iron deficiency anemia, not otherwise specified from Last 3 Months Immunizations Immunization Administration [...] Sign Reading Time Taken Comments Blood Pressure 110/70 01/08/2025 3:13 PM EDT Pulse 96 01/08/2025 3:13 PM EDT Temperature - - Respiratory Rate - - Oxygen Saturation 90% 03/12/2024 4:22 PM EST Inhaled Oxygen Concentration - - Weight 88.9 kg (196 lb) 01/08/2025 3:13 PM EDT Height 152.4 cm (5') 12/31/2019 12:00 PM EDT Body Mass Index 38.28 12/31/2019 12:00 PM EDT Plan of Treatment Upcoming Encounters Date Type Department Care Team (Late st Contact Info) Description 01/07/2026 4:15 PM EDT Office Visit [facility] [address] [address] Kseha Dempsey ARNP [address] [phone] Health Maintenance Due Date Last Done Comments Diabetes: Ophthalmology Exam 01/10/2022 Diabetes: Pedal Pulse Checked 01/10/2022 Diabetes: Sensory Foot Exam 01/10/2022 Diabetes: Visual Foot Exam 01/10/2022 Diabetes: Hemoglobin A1C 11/11/2024 08/12/2024, 0408/2024 Influenza Vaccine (#1) 2024 , 05/08/2021, 04/28/2015, Additional history exists Pneumococcal Vaccine: 50+ Years Completed 02/03/2015, 05/13/2011 Pneumococcal Vaccine: Peds (0 to 5 Years) and At-Risk Patients (6 to 49 Years) Discontinued 02/03/2015, 05/13/2011 Hepatitis B Vaccine Aged Out No longe r eligible based on patient's age to complete this topic Insurance [facility] Medicare [facility] Medicare Care Teams Clinical Operations Consultant Relationship Specialty Start Date End Date Jewell Monaco MD [address] [place] [address] [address] [place] [address] PCP - General Internal Medicine 02/13/23
--- OUTSIDE RECORDS SUMMARY | 2025-03-13 23:22 | XMS_ITS | Encounter Summary ---
Author Organization [facility] Address [address] [place] [address] Care Team Providers Care Steamer Gum Candy Name Role Phone Jewell Monaco MD Primary Care Provider Encounter Details Date Type Department Care Team (Late st Contact Info) Description 02/11/2025 Results Follow-Up [facility] - Medical [address] [place] [address] Gris Perez NP [address] [place] [address] Dr [address] [place] [phone] Social History Tobacco Use Types Packs/Day Years [...] on file documented as of this encounter Ordered Prescriptions Prescription Sig Dispense Quantity Refills Last Filled Start Date End Date potassium chloride (KLOR-CON M20) 20 mEq CR tablet Take one tablet by mouth tonight (02/11/25) and take one tablet by mouth the morning of 02/12/25. Tablet may be swallowed whole (do not crush/chew/suck on) OR broken in half and each half swallowed separately OR dissolved (whole tablet) in ~4 ounces of water (allow ~2 minutes to dissolve, stir well and administer immediately). 2 tablet 02/11/2025 spironolactone (ALDACTONE) 25 mg tablet Take 1 tablet (25 mg total) by mouth 1 (one) time each day. 90 tablet 1 02/11/2025 documented in this encounter Progress Notes * Yadira Juarez RN - 02/26/2025 4:03 PM EDT I spoke to Kelley and informed her of the lab result message dated 02/20/25. She reported the patient had 2 teeth pulled on Sunday, so she is not feeling well in that way. The tops of her feet are swollen. She is not having anymore SOB than normal. She fills her water cup constantly and always drinking water throughout the day. We went over her medications and she takes them as prescribed. I sched uled the patient for a visit with MARIA GUADALUPE Gris Perez on 03/16/25 @ 3:10 PM. I offered sooner appts but there were conflicts with the timing and Kelley going on vacation. Discussed with Gris in person. * Yadira Juarez RN - 02/26/2025 3:25 PM EDT An additional message was left on Kelley's voicemail for call back. I formulated a letter and mailed to the patient,. IVET * Yadira Juarez RN - 02/25/2025 1:38 PM EDT I left a message on Kelley's voicemail to call back. * Yadira Juarez RN - 02/13/2025 1:49 PM EDT I left a detailed message on Kelley's voicemail for call back; asked if she had her labs done. Awaiting call back. * Yadira Juarez RN - 02/13/2025 1:49 PM EDT ----- Message from Becka Perez NP sent at 02/13/2025 1:18 PM EDT ----- Please ensure they update labs to recheck potassium-- thanks ----- Message ----- From: Yadira Juarez RN Sent: 02/11/2025 4:40 PM EDT To: Gris Perez NP ----- Message from Yadira Juarez RN sent at 02/11/2025 4:40 PM EDT ----- ----- Message ----- From: Gris Perez NP Sent: 02/11/2025 10:49 AM EDT To: Yadira Juarez RN Please let Selin's daughter know that her blood work was reviewed. Her potassium was quite low. Thisis most likely because she has stopped the spironolactone which retains potassium. The labs show too that she may be slightly dehydrated. Please see how she is doing and the swelling is. I would advise she take 20 mEq of potassium twice today and tomorrow re-start the spironolactone. Ensure hydration and recheck labs on Sunday. For any new or worsenign symptoms would advise ED ----- Message ----- From: Interface, Incoming Ancillary Results [facility]- [facility] Sent: 02/11/2025 7:07 AM EDT To: Gris Perez NP * Gris Perez NP - 02/13/2025 1:18 PM EDT Please ensure they update labs to recheck potassium-- thanks * Gris Perez NP - 02/11/2025 4:41 PM EDT Thank you * Yadira Juarez RN - 02/11/2025 4:37 PM EDT I spoke to Kelley and informed her of your message. She voiced understanding. [facility] ordered and faxedto [facility] on [address] [place], [place]. As discussed, Potassium 20 mEq- 2 tabs sent to her pharmacy with the instruction to take one 20 mEq tab tonight and another 20 mEq tab tomorrow morning. Spironolactone 25 mg daily ordered to her pharmacy. She is aware the patient should increase intake of Potassium- rich foods. BLE edema has decreased a lot per Kelley and she has been fatigued. * Yadira Juarez RN - 02/11/2025 4:18 PM EDT I left an additional msg on Kelley's machine for call back. * Yadira Juarez RN - 02/11/2025 11:14 AM EDT I left a detailed message on Kelley's voicemail and advised her to call back so we can discuss how the patient is doing and confirm her pharmacy. * Yadira Juarez RN - 02/11/2025 11:14 AM EDT ----- Message from Becka Perez NP sent at 02/11/2025 10:49 AM EDT ----- Please let Selin's daughter know that her blood work was reviewed. Her potassium was quite low. Thisis most likely because she has stopped the spironolactone which retains potassium. The labs show too that she may be slightly dehydrated. Please see how she is doing and the swelling is. I would advise she take 20 mEq of potassium twice today and tomorrow re-start the spironolactone. Ensure hydration and recheck labs on Sunday. For any new or worsenign symptoms would advise ED ----- Message ----- From: Interface, Incoming Ancillary Results [facility]- [facility] Sent: 02/11/2025 7:07 AM EDT To: Gris Perez NP * Gris Perez NP - 02/11/2025 10:49 AM EDT Please let me know which pharmacy to send meds to thanks * Gris Perez NP - 02/11/2025 10:49 AM EDT Please let Selin's daughter know that her blood work was reviewed. Her potassium was quite low. Thisis most likely because she has stopped the spironolactone which retains potassium. The labs show too that she may be slightly dehydrated. Please see how she is doing and the swelling is. I would advise she take 20 mEq of potassium twice today and tomorrow re-start the spironolactone. Ensure hydration and recheck labs on Sunday. For any new or worsenign symptoms would advise ED documented in this encounter Plan of Treatment Upcoming Encounters Date Type Department Care Team (Late st Contact Info) Description 03/16/2025 3:10 PM EST Office Visit [facility] Cardiology [facility] [address] [place] [phone] Gris Perez NP [address] [place] [address] [place] [phone] 04/24/2025 12:30 PM EST Ancillary Procedure [facility] [address] [place] [address] 05/08/2025 1:10 PM EST Office Visit [facility] [address] [place] [address] Gris Perez NP [address] [place] [address] Dr [address] [place] [phone] documented as of this encounter Procedures Procedure Name Priority Date/Time Associated Diagnosis Comments BASIC METABOLIC PANEL Routine 02/16/2025 11:00 AM EDT Chronic diastolic congestive heart failure (CMS/HCC V24, CMS/HCC V28) documented in this encounter Results * (ABNORMAL) Basic metabolic panel (02/16/2025 11:00 AM EDT) Glucose 86 70 - 99 mg/dL [facility] 1 Blood Urea Nitrogen (BUN) 43(H) 8 - 27 mg/dL [facility] 1 Creatinine 1.58(H) 0.57 - 1.00 mg/dL [facility] 1 eGFR 32(L) >59 mL/min/1.7 3 [facility] 1 BUN/Creatinine Ratio 27 12 - 28 [facility] 1 Sodium 142 134 - 144 mmol/L [facility] 1 Potassium 3.5 3.5 - 5.2 mmol/L [facility] 1 Chloride 90(L) 96 - 106 mmol/L [facility] 1 Carbon Dioxide 31(H) 20 - 29 mmol/L [facility] 1 Calcium 10.8(H) 8.7 - 10.3 mg/dL [facility] 1 Comment:Verified by repeat analysis Blood Venous blood specimen / Unknown 02/16/2025 11:00 AM EDT 02/16/2025 Narrative [facility] 1 - 02/18/2025 10:06 PM EDT Performed at: 01 - [facility] [address] [id number] Employment Assistant: Em Ang MD, Phone: [phone] us Gris Perez NP LAB BLOOD ORDERABLES Final Res ult [facility] 1 documented in this encounter Visit Diagnoses Diagnosis Chronic diastolic congestive heart failure (CMS/HCC V24, CMS/HCC V28)- Primary documented in this encounter Discontinued Medications Medication Sig Discontinue Reason Start Date End Da te spironolactone (ALDACTONE) 25 mg tablet Take 1 tablet (25 mg total) by mouth 1 (one) time each day. Reorder 10/01/2024 02/11/2025 documented as of this encounter Care Teams Steamer Gum Candy Relationship Specialty Start Date End Date Jewell Monaco MD [address] [place] [phone] PCP - General Internal Medicine 06/07/20 documented as of this encounter
--- OUTSIDE RECORDS SUMMARY | 2025-03-13 23:22 | XMS_ITS | Clinical Summary ---
Author Organization [address] [place] [address] [place] [phone] Phone Care Team Providers Care Registered Nurse Float Pool Name Role Phone Jewell Monaco MD Primary Care Provider Allergies No known active allergies Medications anastrozole (ARIMIDEX) 1 mg Take 1 tablet (1 mg total) by mouth 1 (one) time each day Active cholecalciferol (VITAMIN D-3) 1,250 mcg (50,000 unit) capsule Take 1 Capsule by mouth once a week. Active cinacalcet (SENSIPAR) 30 mg tablet Take 3 Tablets by mouth 2 times daily. Active famotidine (PEPCID) 20 mg tablet Take 1 tablet (20 mg total) by mouth 2 (two) times a day. Active magnesium oxide 400 mg magnesium capsule Take 1 capsule by mouth 1 (one) time each day. Active mirtazapine (REMERON) 15 mg tablet Take 1 Tablet by mouth at bedtime. Active vit C/E/Zn/coppr/david tein/zeaxan (PRESERVISION AREDS-2 ORAL) Take 1 tablet by mouth 2 (two) times a day. Active Oxygen Therapy (O2) gas Inhale into the lungs. Active polyethylene glycol (MIRALAX) 17 gram packet Take 17 g by mouth daily. Active sennosides/docu sate sodium (SENNA WITH DOCUSATE SODIUM ORAL) Take 50 mg by mouth 2 times daily. Active thiamine 100 mg tablet Take 100 mg by mouth daily. Active amoxicillin (AMOXIL) 500 mg capsule Take 4 capsules by mouth 30-60 minutes prior to dental procedures. 4 each 3 4 Active Additional Information Patient not taking.Reported on 10/09/2024 doxycycline (ADOXA) 100 mg tablet Take 1 tablet (100 mg total) by mouth 2 (two) times a day. Take with a full glass of water and do not lie down for at least 30 minutes after Active aspirin 81 mg EC tabletIndicatio ns:S/P TAVR (transcatheter aortic valve replacement) Take 1 tablet (81 mg total) by mouth 1 (one) time each day. 90 each 3 5 Active torsemide (DEMADEX) 20 mg tablet Take 1 tablet (20 mg total) by mouth 2 (two) times a day. 180 tablet 1 5 Active metOLazone (ZAROXOLYN) 2.5 mg tabletIndicatio ns:Chronic heart failure with preserved ejection fraction ([facility] V24, [facility] V28) Take 1 tablet (2.5 mg total) by mouth 1 (one) time per week. 7 tablet 3 5 Active metoprolol succinate (TOPROL-XL) 25 mg 24 hr tablet Take 0.5 tablets (12.5 mg total) by mouth 2 (two) times a day. Do not crush or chew. 90 tablet 1 5 Active spironolactone (ALDACTONE) 25 mg tablet Take 1 tablet (25 mg total) by mouth 1 (one) time each day. 90 tablet 1 5 Active potassium chloride (KLOR-CON M20) 20 mEq CR [...] stir well and administer immediately). 2 tablet 5 Active Active Problems Problem Noted Date Diagnosed Date Morbid obesity with BMI of 4 0.0-44.9, adult ([facility] V24, [facility] V28) 04/09/2024 Other chest pain 04/05/2022 Overview (04/09/2024): Last Assessment & Plan: As I noted [...] over 15 to 20 minutes call 911. Cardiac murmur 09/02/2021 Atelectasis, right 08/01/2021 Overview (04/09/2024): D/C'd from [facility] on 07/31/21 Epistaxis 08/01/2021 Hypoxia 08/01/2021 Overview (04/09/2024): D/C'd from [facility] on 07/31/21 Type 2 diabetes mellitus ([facility] V24, [facility] V 28) 08/01/2021 CHF exacerbation ([facility] V24, [facility] V28) 06/29 Chronic diastolic congestive heart failure ([facility] V24, [facility] V28) 07/19/2021 Overview (04/09/2024): Grade 2 Last Assessment & Plan: Volume status appears acceptable today. I would continue torsemide at the current dose. I again stressed the importance of a low-salt diet. We discussed daily weights. We discussed wearing her oxygen as directed. She will call the office for weight gain of more than 3 pounds in 1 day or 5 pounds in 1 week. Interstitial lung disease ([facility] V24, [facility] V28) 07/19/2021 Overview (04/09/2024): with restrictive pattern on home 2L O2 and Bipap at night Nephrolithiasis 07/19/2021 PAF (paroxysmal atrial fibri llation) ([facility] V24, [facility] V28) 07/19/2021 Prediabetes 07/19/2021 Primary hypertension 03/21/2021 Overview (04/09/2024): Last Assessment & Plan: 126/60 in office today, stable and well-controlled. Continue current regimen. Assessment & Plan (10/09/2024 8:45 PM EDT): Blood pressure is well-controlled today, 102/62, continue on current medical therapies. Pericardial effusion with cardiac tamponade 08/28 Overview (04/09/2024): status post pericardiostomy Last Assessment & Plan: Patient did have large pericardial effusion. Etiology is not clear. As I noted cytology is negative for malignant cells. It is not clear she may have had a viral pericarditis. I did discuss discussed the natural history of this with the son and the patient. She is to have a repeat limited echo on . SOB (shortness of breath) 09/14/2020 Overview (04/09/2024): Last Assessment & Plan: The patient has [...] continue with the current dose of torsemide. Longstanding persistent atri al fibrillation (CMS/HCC V24, CMS/HCC V28) 06/07/2020 Overview (04/09/2024): Last Assessment & Plan: She remains in atrial fibrillation by exam the rate is controlled. She is not anticoagulated. I have again discussed this with him including the Watchman procedure. She still does not want to go ahead with the Watchman procedure. We have talked about the possible risks of fibrillation not being anticoagulated which would include an embolic event which could lead to a stroke. Nonrheumatic aortic valve stenosis 06/07/2020 Overview (04/09/2024): Last Assessment & Plan: I did review the echocardiographic findings with him from August 2022 at [facility]. I did tell her she does have severe aortic stenosis. I did tell her I thought this was a contributing factor to her shortness of breath and congestive heart failure. I did speak to them and recommend further evaluation including a cardiac catheterization and eventual TAVR. Also discussed the natural history of untreated severe aortic stenosis. I have given them a booklet to read about this. This time the patient does not want to proceed. I did tell him if they change her mind to let us know. Congestive heart failure (CHF) (CMS/HCC V24, CMS /[facility] V28) 08/01/2017 Overview (04/09/2024): Last Assessment & Plan: Does have chronic diastolic heart failure. Today her volume status appears to be okay. At this time we will continue with the current dose of the torsemide. I did give him a slip to repeat her blood work. Allergic rhinitis 02/25/2017 Pneumonitis 02/25/2017 Restrictive lung disease 02/25/2017 MARVEL treated with BiPAP 02/15/2017 Encounters Date Type Department Care Team Description 03/04/2025 3:20 PM EST Ancillary Procedure [facility] [address] [place] [address] 02/16/2025 Telephone [facility] [address] [facility] [address] [place] [address] Gris Perez NP 02/11/2025 Results Follow-Up [facility] [address] [facility] [address] [place] [address] Gris Perez NP 02/10/2025 Telephone [facility] [address] [place] [address] Tong Judd MD 02/05/2025 Telephone [facility] [address] [place] [address] Tong Judd MD 02/02/2025 Telephone [facility] [address] [place] [address] Teto Kenyon MD 01/29/2025 Telephone [facility] [address] [place] [address] Tong Judd MD 01/23/2025 Telephone [facility] [address] [place] [address] Gris Perez NP 01/22/2025 Telephone [facility] [address] [place] [phone] Tong Judd MD from Last 3 Months Surgical History Surgery Date Site/Laterality Comments COLONOSCOPY PROCEDURE: HISTORICAL COLONOSCOPY TONSILLECTOMY PROCEDURE: HISTORICAL TONSILLECTOMY HYSTERECTOMY PROCEDURE: HISTORICAL TOTAL HYSTERECTOMY WITH BSO; COMMENT: Bilateral Salpingo-oophorectomy sample OTHER SURGICAL HISTORY PROCEDURE: HISTORY OTHER; COMMENT: Gallbladder OTHER SURGICAL HISTORY PROCEDURE: HISTORY OTHER; COMMENT: Biopsy CHOLECYSTECTOMY PROCEDURE: HISTORICAL CHOLECYSTECTOMY OTHER SURGICAL HISTORY PROCEDURE: HISTORY OTHER; COMMENT: Pericardiostomy OTHER SURGICAL HISTORY PROCEDURE: [place] EGD PARTIAL/COMPL ESOPHAGOGASTRIC FUNDOPLASTY Medical History Medical History Date Comments Allergic rhinitis 02/25/2017 DX:Allergic rh initis Obstructive sleep apnea syndrome 02/15/2017 DX:Obstructive sleep apnea syndrome Pneumonitis 02/25/2017 DX:Pneumonitis Restrictive lung disease 02/25/2017 DX:Rest rictive lung disease Congestive heart failure (CH F) ([facility] V24, [facility] V28) 08/01/2017 DX:Congestive heart failure (CHF) ([facility]); COMMENT: Grade 2 Morbid obesity with BMI of 4 0.0-44.9, adult ([facility] V24, [facility] V28) 08/01/2017 DX:Morbid obesity wit h BMI of 40.0-44.9, adult ([facility]) Supplemental oxygen dependent 08/01/2017 DX :Supplemental oxygen dependent Hyperparathyroidism ([facility] V24) DX:Hyperparathyroidism (HCC) Interstitial lung disease ([facility]/HCC V24, [facility] V28) DX:Interstitial lung disease (HCC); COMMENT: with restrictive pattern on home 2L O2 and Bipap at night Nephrolithiasis DX:Nephrolithias is Obesities, morbid (CMS/HCC V 24, [facility] V28) DX:Obesities, morbid (HCC) MARVEL treated with BiPAP DX:MARVEL tr eated with BiPAP Prediabetes DX:Prediabetes Hx of breast cancer DX:Hx of melony ast cancer Infiltrating ductal carcinom a ([facility] V24, [facility] V28) DX:Infiltrating ductal carci noma (HCC); COMMENT: of the right breast on anastrozole BiPAP (biphasic positive air way pressure) dependence DX:BiPAP (biphasic positive airway pressure) dependence Type 2 diabetes mellitus ([facility]/HCC V24, [facility] V28) DX:Type 2 diabetes mellitus (HCC) Atelectasis, right DX:Atelectasi s, right; COMMENT: D/C'd from [facility] on 07/31/21 Hypoxia DX:Hypoxia; COMM ENT: D/C'd from [facility] on 07/31/21 SOB (shortness of breath) DX:SOB (shortness of breath); COMMENT: D/C'd from [facility] on 07/31/21 Severe obesity ([facility] V24, [facility] V28) DX:Severe obesity (HCC) Atypical chest pain DX:Atypical chest pain History of ESBL E. coli infection 2010 DX:History of ESBL E. coli infection; COMMENT: UTI History of GI bleed DX:History o f GI bleed; COMMENT: w/ neg EGD and colonoscopy, ?PUD History of breast cancer DX:Hist ory of breast cancer Class 2 obesity DX:Class 2 obesi ty Cough DX:Cough Family History Medical History Relation Name Comments Stroke Brother Hypertension Father Hypertension Mother Stroke Sister Relation Name Status Comments Brother Father Mother Sister Social History Tobacco Use Types Packs/Day Years Used Date Smoking Tobacco: Never Smokeless Tobacco: Never Tobacco Cessation:Counseling Given: Not Answered Alcohol Use Standard Drinks/Week Comments Never 0 (1 standard drink = 0.6 oz pur e alcohol) Comments Unknown Sex and Gender Information Value Date Recorded Sex Assigned at Not on file Legal Sex Female 9:01 PM EST Gender Identity Not on file Sexual Orientation Not on file Obstetrics History Last Filed Vital Signs Vital Sign Reading Time Taken Comments Blood Pressure 102/62 10/09/2024 3:08 PM EDT Pulse 68 10/09/2024 3:08 PM EDT Temperature - - Respiratory Rate - - Oxygen Saturation 98% 10/09/2024 3:08 PM EDT Inhaled Oxygen Concentration - - Weight 88.9 kg (196 lb) 10/09/2024 3:08 PM EDT Height 152.4 cm (5') 10/09/2024 3:08 PM EDT Body Mass Index 38.28 10/09/2024 3:08 PM EDT Plan of Treatment Upcoming Encounters Date Type Department Care Team (Late st Contact Info) Description 03/16/2025 3:10 PM EST Office Visit [facility] [address] [facility] [address] [place] [address] Gris Peerz, LYUDMILA [address] [place] [address] [address] [place] [phone] 04/24/2025 12:30 PM EST Ancillary Procedure [facility] [address] [place] [phone] 05/08/2025 1:10 PM EST Office Visit [facility] [address] [place] [address] [place] [phone] Gris Perez, LYUDMILA [address] [place] [address] [address] [place] [phone] Health Maintenance Due Date Last Done Comments Diabetes: Annual Foot Exam 1950 Diabetes: Annual Retina Eye Exam 1950 RSV Immunization Adult Patients (1 - 1-dose 75+ series) 07/08/2015 Cholesterol Screening (Lipid Panel) 04/08/2022 Falls Risk Assessment 04/08/2022 Osteoporosis Screening (Bone Density Screening) 04/08/2022 Social Influencers of Health Screening 04/08/2022 Medicare Annual Wellness Visit 10/13/2023 10/12/2022 Depression Screening 04/30/2024 DTaP,Tdap,and Td Vaccines (2 - Td or Tdap) 10/18/2024 10/18/2014 COVID-19 Vaccine (4 - season) 2024 05/08/2021, 11/02/2020, 10/05/2020 Influenza Vaccine (#1) 2024 , 02/26/2023, 06/28/2022, Additional history exists Diabetes: Blood Sugar Control Test (HGBA1C) 02/11/2025 08/12/2024 Diabetes: Annual Urine Albumin-Creatinine Ratio (uACR) 09/23/2025 09/23/2024, 03/12/2024 Diabetes: Annual GFR (Glomerular Filtration Rate) 02/16/2026 02/16/2025, 02/10/2025, 10/09/2024, Additional history exists Hypertension/CHF/CAD Annual BMP Blood Test 02/16/2026 02/16/2025, 02/10/2025, 10/09/2024, Additional history exists Pneumococcal Vaccine: 50+ Years Completed 02/03/2015, 05/13/2011 Zoster Vaccines Completed 04/18/2018, 01/12/2018 HIB Vaccines Aged Out No longer eligi ble based on patient's age to complete this topic HPV Vaccines Aged Out No longer eligi ble based on patient's age to complete this topic Hepatitis A Vaccines Aged Out No long er eligible based on patient's age to complete this topic Hepatitis B Vaccines Aged Out No long er eligible based on patient's age to complete this topic IPV Vaccines Aged Out No longer eligi ble based on patient's age to complete this topic MMR Vaccines Aged Out No longer eligi ble based on patient's age to complete this topic Meningococcal ACWY Vaccine Aged Out N o longer eligible based on patient's age to complete this topic Meningococcal B Vaccine Aged Out No l onger eligible based on patient's age to complete this topic RSV Immunization Patients Under 20 months Aged Out No longer eligible based on patient's age to complete this topic Varicella Vaccines Aged Out No longer eligible based on patient's age to complete this topic Medical Devices Implanted Type Area Nuclear Waste Process Operator Device Identifier Shelf Expiration Date Model / Serial / Lot Medt-Card [id number] Implanted: (Quantity not on file) Cardiac Pacemaker [employer] - CARDIAC RHYTH-[facility] [id number] / [id number] / Procedures Procedure Name Priority Date/Time Associated Diagnosis Comments CARDIAC DEVICE CHECK- REMOTE- MURJ Routine 03/04/2025 3:19 PM EST BASIC METABOLIC PANEL Routine 02/16/2025 11:00 AM EDT Chronic diastolic congestive heart failure (CMS/HCC V24, CMS/HCC V28) BASIC METABOLIC PANEL Routine 02/10/2025 11:00 AM EDT Acute on chronic congestive heart failure, unspecified heart failure type (CMS/HCC V24, CMS/HCC V28) HEMOGLOBIN A1C Routine 08/12/2024 6:25 AM EDT Essential (primary) hypertension Sepsis, unspecified organism (CMS/HCC V24, CMS/HCC V28) Vitamin D deficiency, unspecified Respiratory failure, unspecified with hypoxia (CMS/HCC V24, CMS/HCC V28) Other abnormal glucose from Last 3 Months or Most Recently Relevant to Health Maintenance Results * Cardiac device check - Remote- MURJ (03/04/2025 3:19 PM EST) Date Time Interrogation Session [id number] CV DEVICE CHECK Type Interrogation Session Remote CV DEVICE CHECK Implantable Pulse Generator Nuclear Waste Process Operator MDT CV DEVICE CHECK Implantable Pulse Generator Type IPG CV DEVICE CHECK Implantable Pulse Generator Model [id number] CV DEVICE CHECK Implantable Pulse Generator Serial Number [id number] CV DEVICE CHECK Implantable Pulse Generator Implant Date [id number] CV DEVICE CHECK Battery Remaining Longevity 96.0 CV DEVICE CHECK Battery Voltage 3.030 CV D EVICE CHECK Battery DATA MINING ANALYST Trigger 2.558 CV DEVICE CHECK Battery Status Middle of Service CV DEVICE CHECK Lead Channel Sensing Intrinsic Amplitude 5.625 CV DEVICE CHECK Lead Channel Setting Sensing Sensitivity 2.00 CV DEVICE CHECK Lead Channel Impedance Value 470 CV DEVICE CHECK Lead Channel Pacing Threshold Amplitude 0.625 CV DEVICE CHECK Lead Channel Pacing Threshold Pulse Width 0.2 CV DEVICE CHECK Lead Channel RV Pacing Threshold Date 2025-02-26 CV DEVICE CHECK Lead Channel Setting Pacing Amplitude 1.125 CV DEVICE CHECK Lead Channel Setting Pacing Pulse Width 0.2 CV DEVICE CHECK Mau Setting Mode (NBG Code) VVIR CV DEVICE CHECK Mau Setting Lower Rate Limit 50 CV DEVICE CHECK Mau Setting Maximum Sensor Rate 120 CV DEVICE CHECK Date of Service 2025-03-04 CV DEVICE CHECK Anatomical Region Laterality Modality Device Interroga tion 02/26/2025 8:55 AM EDT Impressions 03/04/2025 2:47 PM EST Normal Remote: No Events * Normal Device Function * Alerts or events: None * Battery: OK, 8.00 yrs * Sensing, impedance and thresholds reviewed * Programmed parameters reviewed * Presenting rhythm reviewed * Heart Rate Histograms reviewed * No significant changes noted Narrative Procedure Note Tong Judd MD - 03/04/2025 IMPRESSION: Normal Remote: No Events * Normal Device Function * Alerts or events: None * Battery: OK, 8.00 yrs * Sensing, impedance and thresholds reviewed * Programmed parameters reviewed * Presenting rhythm reviewed * Heart Rate Histograms reviewed * No significant changes noted Tong Judd MD CV IMPLANTABLE CARDIAC DEV ICE PROCEDURES Final Result * (ABNORMAL) Basic metabolic panel (02/16/2025 11:00 AM EDT) Only the most recent of2 resultswithin the time period is included. Glucose 86 70 - 99 mg/dL [facility] [...] 10:06 PM EDT Performed at: 01 - [facility] [id number] Police Magistrate: Em Ang MD, Phone: [phone] us Gris Perez NP LAB BLOOD ORDERABLES Final Res ult [facility] 1 * Hemoglobin A1c (08/12/2024 6:25 AM EDT) [facility] Hemoglobin A1C 5.4 <6.5 % LAB CHEMISTRY METHOD 08/12/2024 2:05 PM EDT [facility] Mean Bld Glu Estim. 108 mg/dL LAB CHEMISTRY METHOD 08/12/2024 2:05 PM EDT [facility] Blood Venous blood specimen / Unknown Venipuncture / Unknown 08/12/2024 6:25 AM EDT 08/12/2024 9:54 AM EDT us Roberta Arreola MD LAB BLOOD ORDERABLES Fin al Result Performing Organization Address City/[facility]/ZIP Co de Phone Number [facility] [address] [place] [address], from Last 3 Months or Most Recently Relevant to Health Maintenance Insurance MEDICARE BLUE CROSS - [place] Care Teams Registered Nurse Float Pool Relationship Specialty Start Date End Date Jewell Monaco MD [address] [place] [phone] PCP - General Internal Medicine 06/07/20
== END 2025-03-13 15:50 | disposition home or self-care (01) ==
LOC: HO.HPS 15:08
PROVIDERS: PCP Internal Medicine; Visit Provider Hospitalist
DX: J98.4 Other disorders of lung (principal); I35.0 Nonrheumatic aortic (valve) stenosis; J44.9 Chronic obstructive pulmonary disease, unspecified; J31.0 Chronic rhinitis
CPT/HCPCS: 99214; G2211

== ENCOUNTER → 2025-03-13 15:07 | Outpatient (BNVA) | payer MEDICARE, BC, SELFPAY | PROVIDERS: PCP Internal Medicine; Visit Provider Hospitalist | DX: J44.9 Chronic obstructive pulmonary disease, unspecified (principal); J98.4 Other disorders of lung; I35.0 Nonrheumatic aortic (valve) stenosis; J31.0 Chronic rhinitis; Z99.81 Dependence on supplemental oxygen; G47.33 Obstructive sleep apnea (adult) (pediatric); Z99.89 Dependence on other enabling machines and devices | CPT/HCPCS: 99212 ==